=== PATIENT | male | born 1995 | race African-American/Black ===

== ENCOUNTER 2020-03-14 19:07 | Emergency (ER) | payer SELFPAY ==
[~2020-03-14] VITALS: Ht 180.3 cm; Wt 79.5 kg
[2020-03-14 20:09] LABS: HEMATOCRIT 43.3 % (42.0-52.0); HEMOGLOBIN 14.5 g/dl (13.5-17.5); MEAN CORPUSCULAR HEMOGLOBIN 28.8 pg (27.0-33.0); MEAN CORPUSCULAR HGB CONC 33.5 g/dl (32.0-36.5); MEAN CORPUSCULAR VOLUME 85.9 fl (80.0-96.0); PLATELET COUNT, AUTOMATED 261 10^3/uL (150-450); RED BLOOD COUNT 5.04 10^6/uL (4.30-6.10); WHITE BLOOD COUNT 7.1 10^3/uL (4.0-10.0)
[2020-03-14 20:30] LABS: AMPHETAMINES LEVEL URINE NEGATIVE (NEGATIVE); BARBITURATES URINE NEGATIVE (NEGATIVE); BENZODIAZEPINES URINE NEGATIVE (NEGATIVE); CANNABINOIDS URINE POSITIVE (NEGATIVE); COCAINE METABOLITE URINE NEGATIVE (NEGATIVE); METHADONE URINE NEGATIVE (NEGATIVE); OPIATES URINE NEGATIVE (NEGATIVE); PHENCYCLIDINE URINE NEGATIVE (NEGATIVE)
[2020-03-14 20:49] LABS: ACETAMINOPHEN LEVEL < 2.0 UG/ML (10.0-30.0); ALBUMIN 4.2 GM/DL (3.2-5.2); ALT/SGPT 14 U/L (12-78); BILIRUBIN,DIRECT 0.2 MG/DL (0.0-0.2); BILIRUBIN,TOTAL 0.6 MG/DL (0.2-1.0); BLOOD UREA NITROGEN 16 MG/DL (7-18); CALCIUM LEVEL 8.6 MG/DL (8.5-10.1); CARBON DIOXIDE LEVEL 28 MEQ/L (21-32); CHLORIDE LEVEL 107 MEQ/L (98-107); CREATININE FOR GFR 1.08 MG/DL (0.70-1.30); ETHYL ALCOHOL (ETHANOL) < 0.003 % (0.000-0.010); GLOMERULAR FILTRATION RATE > 60.0 (>60); GLUCOSE, FASTING 89 MG/DL (70-100); POTASSIUM SERUM 3.4 MEQ/L (3.5-5.1); SALICYLATE LEVEL < 1.7 MG/DL (5.0-30.0); SODIUM LEVEL 140 MEQ/L (136-145); TOTAL PROTEIN 7.6 GM/DL (6.4-8.2)
[2020-03-14 21:59] VITALS: BP 153/70
== END 2020-03-14 22:03 | disposition home or self-care (01) ==
LOC: M ED 19:07
DX: F43.0 Acute stress reaction (principal); F16.90 Hallucinogen use, unspecified, uncomplicated; F17.200 Nicotine dependence, unspecified, uncomplicated; Z63.0 Problems in relationship with spouse or partner; Z91.010 Allergy to peanuts
CPT/HCPCS: 36415; 80048; 80076; 80307; 84443; 85027; 99284; G0480

== ENCOUNTER 2020-03-15 22:58 | Inpatient (IN) | payer SELFPAY ==
[~2020-03-15] VITALS: Ht 172.7 cm; Wt 73.2 kg
[2020-03-15 23:55] LABS: AMPHETAMINES LEVEL URINE NEGATIVE (NEGATIVE); BARBITURATES URINE NEGATIVE (NEGATIVE); BENZODIAZEPINES URINE NEGATIVE (NEGATIVE); CANNABINOIDS URINE POSITIVE (NEGATIVE); COCAINE METABOLITE URINE NEGATIVE (NEGATIVE); METHADONE URINE NEGATIVE (NEGATIVE); OPIATES URINE NEGATIVE (NEGATIVE); PHENCYCLIDINE URINE NEGATIVE (NEGATIVE)
[2020-03-16 00:07] LABS: HEMATOCRIT 44.7 % (42.0-52.0); MEAN CORPUSCULAR HEMOGLOBIN 29.1 pg (27.0-33.0); MEAN CORPUSCULAR HGB CONC 33.6 g/dl (32.0-36.5); MEAN CORPUSCULAR VOLUME 86.6 fl (80.0-96.0); PLATELET COUNT, AUTOMATED 281 10^3/uL (150-450); RED BLOOD COUNT 5.16 10^6/uL (4.30-6.10)
[2020-03-16] MEDS ORDERED: OLANZapine 10 MG TAB PO ONE (00:30)
[2020-03-16 00:44] LABS: ACETAMINOPHEN LEVEL < 2.0 UG/ML (10.0-30.0); ALBUMIN 4.7 GM/DL (3.2-5.2); ALT/SGPT 15 U/L (12-78); BILIRUBIN,DIRECT 0.3 MG/DL (0.0-0.2); BILIRUBIN,TOTAL 0.9 MG/DL (0.2-1.0); BLOOD UREA NITROGEN 11 MG/DL (7-18); CALCIUM LEVEL 9.6 MG/DL (8.5-10.1); CARBON DIOXIDE LEVEL 27 MEQ/L (21-32); CHLORIDE LEVEL 105 MEQ/L (98-107); CREATININE FOR GFR 1.11 MG/DL (0.70-1.30); ETHYL ALCOHOL (ETHANOL) < 0.003 % (0.000-0.010); GLOMERULAR FILTRATION RATE > 60.0 (>60); GLUCOSE, FASTING 90 MG/DL (70-100); POTASSIUM SERUM 3.7 MEQ/L (3.5-5.1); SALICYLATE LEVEL < 1.7 MG/DL (5.0-30.0); SODIUM LEVEL 138 MEQ/L (136-145); TOTAL PROTEIN 8.4 GM/DL (6.4-8.2)
[2020-03-16] MEDS ORDERED: LORazepam 2 MG/ML VIAL IM ONE (01:15)
[2020-03-16] MEDS ORDERED: HALOPERIDOL 5MG/ML VIAL (J1630 PER 1) IM ONE (01:15)
[2020-03-16] MEDS ORDERED: diphenhydrAMINE 50MG/ML VIAL (J1200) IM ONE (01:15)
[2020-03-16] MEDS ORDERED: HALOPERIDOL 5MG/ML VIAL (J1630 PER 1) As Ordered ONE (01:16)
[2020-03-16] MEDS ORDERED: diphenhydrAMINE 50MG/ML VIAL (J1200) As Ordered ONE (01:16)
[2020-03-16] MEDS ORDERED: LORazepam 2 MG/ML VIAL As Ordered ONE (01:17)
[2020-03-16 14:17] LABS: RSV AMPLIFICATION NEGATIVE (NEGATIVE)
[2020-03-16] MEDS ORDERED: NICOTINE 21MG/24HR 1 EA TRANSDERMAL TD ONE (21:30)
--- NOTE | 2020-03-17 06:35 | ECGEPIP ---
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
[2020-03-17] MEDS ORDERED: NICOTINE 21MG/24HR 1 EA TRANSDERMAL TD ONE (09:15)
[2020-03-18] MEDS ORDERED: LORazepam 2 MG TAB PO STA (02:26)
[2020-03-18] MEDS ORDERED: NICOTINE 21MG/24HR 1 EA TRANSDERMAL TD ONE (10:00)
[2020-03-18 17:33] VITALS: BP 132/88
[2020-03-18] MEDS ORDERED: PALIPERIDONE 3 MG ER TAB (INVEGA) PO SCH (21:00)
[2020-03-18] MEDS ORDERED: NICOTINE POLACRILEX 2 MG GUM PO PRN (21:15)
[2020-03-18] MEDS: MOM 30ML SUSPENSION UDC PO PRN (23:31)
[2020-03-19] MEDS ORDERED: LORazepam 2 MG/ML VIAL IM STA ×2 (06:15→06:55)
[2020-03-19] MEDS ORDERED: HALOPERIDOL 5MG/ML VIAL (J1630 PER 1) IM STA ×2 (06:15→06:55)
[2020-03-19] MEDS ORDERED: diphenhydrAMINE 50MG/ML VIAL (J1200) IM STA ×2 (06:15→06:55)
[2020-03-19 06:45] VITALS: BP 136/77
[2020-03-19 06:51] VITALS: BP 143/88
[2020-03-19 07:15] VITALS: BP 148/71
[2020-03-19 07:30] VITALS: BP 119/67
[2020-03-19] MEDS: haloperidoL 5 MG TAB PO SCH ×3 (09:00→22:17)
[2020-03-19] MEDS: NICOTINE 21MG/24HR 1 EA TRANSDERMAL TD SCH (09:00)
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
[2020-03-19] MEDS: traZODone 50 MG TAB PO PRN (23:23)
[2020-03-20 05:53] VITALS: BP 135/66
[2020-03-20] MEDS: MOM 30ML SUSPENSION UDC PO PRN (06:25)
[2020-03-20] MEDS: NICOTINE 21MG/24HR 1 EA TRANSDERMAL TD SCH (09:00)
[2020-03-20] MEDS: haloperidoL 5 MG TAB PO SCH ×3 (09:18→20:11)
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
[2020-03-20 17:48] VITALS: BP 141/71
[2020-03-20] MEDS: traZODone 50 MG TAB PO PRN (21:47)
[2020-03-20] MEDS: OLANZapine 5 MG TAB PO PRN (22:35)
[2020-03-21] MEDS ORDERED: QUEtiapine FUMARATE 50MG TAB PO ONE
[2020-03-21 06:15] VITALS: BP 154/90
[2020-03-21] MEDS: MOM 30ML SUSPENSION UDC PO PRN (06:33)
[2020-03-21] MEDS: haloperidoL 5 MG TAB PO SCH ×3 (08:36→20:28)
[2020-03-21] MEDS: ACETAMINOPHEN TAB 650MG DOSE (2X325MG) PO PRN ×2 (08:36→21:21)
[2020-03-21] MEDS: NICOTINE 21MG/24HR 1 EA TRANSDERMAL TD SCH (08:37)
[2020-03-21 16:23] VITALS: BP 124/69
[2020-03-21] MEDS: QUEtiapine FUMARATE 50MG TAB PO SCH (20:28)
[2020-03-21] MEDS: traZODone 50 MG TAB PO PRN (21:20)
[2020-03-21] MEDS: OLANZapine 5 MG TAB PO PRN (22:02)
[2020-03-22] MEDS: OLANZapine 5 MG TAB PO PRN ×2 (04:02→22:43)
[2020-03-22] MEDS: ACETAMINOPHEN TAB 650MG DOSE (2X325MG) PO PRN (04:42)
[2020-03-22 06:22] VITALS: BP 139/84
[2020-03-22] MEDS: haloperidoL 5 MG TAB PO SCH ×3 (08:04→20:18)
[2020-03-22] MEDS: NICOTINE 21MG/24HR 1 EA TRANSDERMAL TD SCH (09:00)
[2020-03-22] MEDS: MOM 30ML SUSPENSION UDC PO PRN (11:30)
[2020-03-22 15:58] VITALS: BP 151/83
--- NOTE | 2020-03-22 16:28 | MHIPN ---
[facility] PROGRESS NOTE DATE: 03/20/2020 The patient had both mechanical and chemical restraint. He became very agitated, trying to leave the unit. Staff had used alternatives to restraints without any success. He was given Haldol 10 mg, Ativan 2 mg, Benadryl 50 mg. Today the patient tells me that he is doing good. INCOMPLETE/canceled by dictator/ml
[2020-03-22] MEDS: QUEtiapine FUMARATE 50MG TAB PO SCH (20:18)
[2020-03-22] MEDS: traZODone 50 MG TAB PO PRN (22:43)
[2020-03-23 06:34] VITALS: BP 132/79
[2020-03-23] MEDS: NICOTINE 21MG/24HR 1 EA TRANSDERMAL TD SCH (08:00)
[2020-03-23] MEDS: haloperidoL 5 MG TAB PO SCH ×3 (08:01→20:11)
[2020-03-23] MEDS: MOM 30ML SUSPENSION UDC PO PRN (09:22)
--- NOTE | 2020-03-23 09:52 | MHIPN ---
[facility] PROGRESS NOTE DATE: 03/21/2020 The patient today states "I feel great." He remains very delusional, talking about the Holy Spirit, he had difficulty sleeping last night and after he had had some Zyprexa, and I believe some trazodone, they had called me because he could not sleep and I prescribed Seroquel 50 mg nightly. He says that that helped him to sleep better. MENTAL STATUS EXAMINATION: He is alert and oriented times three. Eye contact is fairly good. Psychomotor activity is normal. There is no formal thought disorder. He told me his mood is "great." His affect is manic. He is denying being suicidal or homicidal. He has paranoid delusions as noted above. Concentration is fair. Memory intact. Insight and judgment is poor. DIAGNOSES: Unspecified psychotic disorder. Rule out substance induced psychotic disorder and hallucinogen use disorder. TREATMENT PLAN: We will continue to monitor the patient for psychotic symptoms and what appears to be possibly hypomanic manic-like symptoms that may or may not be substance induced. I will add Seroquel 50 mg nightly to his medication regimen because it sounds like this really helped him sleep better and the patient is in agreement with that.
[2020-03-23] MEDS ORDERED: LORazepam 2 MG TAB PO ONE (11:15)
[2020-03-23] MEDS ORDERED: diphenhydrAMINE 50MG CAP PO ONE (11:15)
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
[2020-03-23 17:44] VITALS: BP 136/84
[2020-03-23] MEDS: QUEtiapine FUMARATE 50MG TAB PO SCH (20:11)
[2020-03-23] MEDS: MAALOX 30 ML SUSP *UDC PO PRN (21:48)
[2020-03-24] MEDS: OLANZapine 5 MG TAB PO PRN ×3 (01:38→16:37)
[2020-03-24] MEDS: MAALOX 30 ML SUSP *UDC PO PRN ×2 (05:21→20:23)
[2020-03-24 06:24] VITALS: BP 137/71
[2020-03-24] MEDS: NICOTINE 21MG/24HR 1 EA TRANSDERMAL TD SCH (09:00)
[2020-03-24] MEDS: haloperidoL 5 MG TAB PO SCH ×3 (09:03→20:00)
--- NOTE | 2020-03-24 13:06 | MHIPNPDOC ---
[facility] Progress Note Progress Note DATE OF SERVICE: 03/24/20 HISTORY OF THE PRESENT ILLNESS: Patient is a 25 -year-old , male, who per the ED reports came to the emergency room on 03/14/20 for a "situational disturbance" where patient reported he was angry at his mother because she was "infringing on my parental rights" and wouldn't let him see his kids. At that visit he denied si/hi/ah/vh but did admit to smoking mushrooms. because "has more things to talk about." At this presentation, Shahzad was observed in the ED to be religiously preoccupied, having two sided conversations, acting out communication roles in different voices, rambling/nonsensical speech, and singing. He was [facility] on a 9.39 [facility] Per the sister, Shirley, she reports patient took mushrooms and that he was "talking to his grandmother, talking to himself, and talking to God.- saying some wild things." She reports he had used mushrooms twice, one JATIN and one New Year's day. sister thinks he is on a "bad trip. She reports that after he "cleared up from his trip, he was acting normal, was with a friend but after he left his friend's house he became bizarre again, hearing voices, and that he is "God's second hand." She encouraged him to come the the ED and he agreed. She states that he is upset with his mother and "his baby mama." He has been t elling sister that the mother is the devil and will be "burning on earth." She states they haven't been getting along and that he has not been able to see his children in a long time, contributing to his drug use VITAL SIGNS: See below. NEW TEST RESULTS: CURRENT MEDICATIONS: See below. MENTAL STATUS EXAMINATION: Patient is a 25-year old single, domiciled male, who presents with disheveled hair, dressed in personal clothing. He is alert and oriented, agreeable to meet with this rewriter but requests that his assigned nurse be present for the interview because he wants her to "vouch" for him that he is doing well, smiles inappropriately at times during the interview. He had colored his mask, one of the images being a cross, and has has it around his neck for the interview process Speech: Is normal rate, rhythm, and tone, spontaneous Language skills are appropriate for age Thought processes including: circumstantial and tangential Thought content: bizarre, denies si/hi, Abstract reasoning, and computation: fair Description of associations: expresses tenriism delusions to the family Description of abnormal or psychotic thoughts: tenriism delusions (per family report), does not appear to be internally preoccupied Judgment: poor Insight:poor Orientation: A&O x3 Recent and remote memory: intact Attention span and concentration: average Language: average Fund of knowledge: average Mood: euthymic Affect: bizarre, animated, DIAGNOSES: unspecified psychotic disorder Rule out substance induced psychotic disorder hallucinogen use disorder VITAL SIGNS: See below. CURRENT MEDICATIONS: See below. HISTORY: VITAL SIGNS: See below. CURRENT MEDICATIONS: See below. ASSESSMENT: Shahzad presents with his nurse, asking her to tell this rewriter that he is doing well. He states that he would like to be discharged today to go home, as he reports he needs to go to work to make money and support his children who live in different states, states "I don't have a problem with staying if that's what I need to do but you are stopping me from being able to take care of my children." He reports that he has revoked his DARION for his sister, who the treatment team has been speaking with to get collateral and to assess for improvement and discuss progress in treatment with. His behaviors of hitting the lake and yelling were discussed and he reports that he has not had any further behaviors since. When asked about what brought him into the coworkers, he gives a disorganized story, starts off talking about how he went to the police station for his court date, then went to the courthouse because the police told him that's where court is held, then talked about his coworkers and his work day on - stating one was on her phone during work and he "called her out on it" and another two are "interloping but it's not illegal at the [facility]." He said that another coworker told him she would cover for him if he left and he went to his sister's house and that the sister's practice's with craft and was reading tarot cards And that one of the tarot cards told him he would be receiving help, states "it could be you, the one helping me like the tarot cards were referring to." He still appears to be confused, does not mention his drug use in his reason for admission. At this interview, he maintains poor insight and judgment, is unable to make the connection of the mushroom use and the effect on his thought process. continue all medications TIME SPENT: 25 minutes. Vital Signs Vital Signs Date Time Temp Pulse Resp B/P (MAP) Pulse Ox O2 Delivery O2 Flow Rate FiO2 03/24/20 06:24 97.3 91 20 137/71 (93) 98 Room Air Current Medications Current Medications Medications (Trade) Dose Ordered Sig/Jennifer Route PRN Reason Start Time Stop Time Status Last Admin Dose Admin Acetaminophen (Tylenol Tab) 650 mg Q6HP PRN PO HEADACHE or DISCOMFORT 03/18/20 16:30 03/22/20 04:42 Al Hydrox/Mg Hydrox/Simethicone (Mylanta) 30 ml Q4HP PRN PO HEARTBURN/INDIGESTION 03/18/20 16:30 03/24/20 05:21 Diphenhydramine HCl (Benadryl) 50 mg STAT STAT IM 03/19/20 06:15 03/19/20 06:19 DC 03/19/20 06:47 Diphenhydramine HCl (Benadryl) 50 mg STAT STAT IM 03/19/20 06:55 03/19/20 06:58 DC 03/19/20 07:08 Haloperidol (Haldol) 5 mg TID PO 03/19/20 09:00 03/24/20 09:03 Haloperidol (Haldol) 10 mg STAT STAT IM 03/19/20 06:15 03/19/20 06:19 DC 03/19/20 06:48 Haloperidol (Haldol) 10 mg STAT STAT IM 03/19/20 06:55 03/19/20 06:58 DC 03/19/20 07:08 Home Med (Med Rec Complete!) ASDIRECTED XX 03/16/20 00:45 03/16/20 00:42 DC Lorazepam (Ativan) 2 mg STAT STAT IM 03/19/20 06:15 03/19/20 06:19 DC 03/19/20 06:47 Lorazepam (Ativan) 2 mg STAT STAT IM 03/19/20 06:55 03/19/20 06:58 DC 03/19/20 07:08 Lorazepam (Ativan) 2 mg STAT STAT PO 03/18/20 02:26 03/18/20 02:27 DC 03/18/20 02:40 Magnesium Hydroxide (Milk Of Magnesia) 30 ml DAILYPRN PRN PO CONSTIPATION 03/18/20 16:30 03/23/20 09:22 Nicotine (Nicoderm Cq 21mg) 1 patch DAILY TD 03/19/20 09:00 Nicotine (Nicorette) 4 mg Q4HP PRN PO NICOTINE WITHDRAWAL 03/18/20 21:15 Olanzapine (ZyPREXA) 5 mg Q6HP PRN PO AGITATION 03/18/20 16:30 03/24/20 09:03 Paliperidone (Invega) 3 mg BID PO 03/18/20 21:00 03/19/20 08:54 DC 03/18/20 21:06 Quetiapine Fumarate (SEROquel) 50 mg QHS PO 03/21/20 21:00 03/23/20 20:11 Trazodone HCl (Desyrel) 50 mg QHSP PRN PO INSOMNIA 03/18/20 16:30 03/22/20 22:43 Allergies Coded Allergies: NUTS (Verified Allergy, Unknown, 03/14/20) MELA CARDONA NP Mar 24, 2020 12:54
[2020-03-24 17:00] VITALS: BP 116/78
[2020-03-24] MEDS: QUEtiapine FUMARATE 50MG TAB PO SCH (20:00)
[2020-03-24] MEDS: traZODone 50 MG TAB PO PRN (20:00)
[2020-03-24] MEDS ORDERED: OLANZapine ORAL DISINTEGRATING TAB 5MG PO ONE (21:45)
[2020-03-25] MEDS: OLANZapine 5 MG TAB PO PRN ×2 (02:23→09:55)
[2020-03-25 06:23] VITALS: BP 133/67
[2020-03-25] MEDS: haloperidoL 5 MG TAB PO SCH (08:00)
[2020-03-25] MEDS: NICOTINE 21MG/24HR 1 EA TRANSDERMAL TD SCH (08:01)
[2020-03-25] MEDS ORDERED: LORazepam 2 MG TAB PO STA (11:16)
--- NOTE | 2020-03-25 12:02 | MHIPN ---
[facility] PSYCHIATRIC PROGRESS NOTE DATE: 03/22/20 HISTORY OF PRESENT ILLNESS: The patient today states that he is doing good. He has no complaints. I am not eliciting any mood symptoms. MENTAL STATUS EXAM: Patient is alert and oriented times 3. Eye contact is fairly good. Psychomotor activity is normal. There is no formal thought disorder noted. He states his mood is good. Appears to be at least hypomanic. He is denying suicidal or homicidal ideations. He remains very delusional. Concentration is fair. Memory intact. Insight and judgment is poor. DIAGNOSES: 1. Unspecified psychotic disorder. 2. Rule out substance induced psychotic disorder and hallucinogen disorder. TREATMENT PLAN: We will continue to monitor the patient for continued problems with paranoid thinking. We will adjust his medication as indicated.
--- NOTE | 2020-03-25 12:16 | MHIPNPDOC ---
[facility] Progress Note Progress Note DATE OF SERVICE: 03/25/20 HISTORY OF THE PRESENT ILLNESS: Patient is a 25 -year-old , male, who per the ED reports came to the emergency room on 03/14/20 for a "situational disturbance" where patient reported he was angry at his mother because she was "infringing on my parental rights" and wouldn't let him see his kids. At that visit he denied si/hi/ah/vh but did admit to smoking mushrooms. because "has more things to talk about." At this presentation, Shahzad was observed in the ED to be religiously preoccupied, having two sided conversations, acting out communication roles in different voices, rambling/nonsensical speech, and singing. He was admitted on a 9.39 to [facility]. Per the sister, Shirley, she reports patient took mushrooms and that he was "talking to his grandmother, talking to himself, and talking to God.- saying some wild things." She reports he had used mushrooms twice, one JATIN and one New Year's day. sister thinks he is on a "bad trip. She reports that after he "cleared up from his trip, he was acting normal, was with a friend but after he left his friend's house he became bizarre again, hearing voices, and that he is "God's second hand." She encouraged him to come the the ED and he agreed. She states that he is upset with his mother and "his baby mama." He has been t elling sister that the mother is the devil and will be "burning on earth." She states they haven't been getting along and that he has not been able to see his children in a long time, contributing to his drug use VITAL SIGNS: See below. NEW TEST RESULTS: CURRENT MEDICATIONS: See below. MENTAL STATUS EXAMINATION: Patient is a 25-year old single, domiciled male, who presents with disheveled hair, dressed in layered personal clothing, wearing a colored his mask, one of the images being a cross, carrying bible. This morning He is alert and oriented, anxious, irritable, pacing floors wanting to speak with staff. He is intrusive with peers and staff, stopped this remote mortgage underwriter in the hallway repeating that he wants to be discharge states, "I need to be seen right now, to discuss my discharge, not my staying, my discharge." He is observed to be acting bizarre in the mileu, dancing and running hands down the lake, singing and changing about God in his room. Throughout the interview, he is irritable, visibly anxious, bouncing and unable to sit still, confrontational and challenging, smiling inappropriately at times. He is religiously preoccupied Thought processes including: circumstantial and tangential Thought content: bizarre, denies si/hi, Abstract reasoning, and computation: fair Description of associations: holiness delusions, hyperfocused Description of abnormal or psychotic thoughts: holiness delusions, does not appear to be internally preoccupied Judgment: poor Insight:poor Orientation: A&O x3 Recent and remote memory: intact Attention span and concentration: average Language: average Fund of knowledge: average Mood: euthymic, irritable Affect: bizarre, animated, intense DIAGNOSES: unspecified psychotic disorder Rule out substance induced psychotic disorder hallucinogen use disorder VITAL SIGNS: See below. CURRENT MEDICATIONS: See below. HISTORY: ASSESSMENT: Shahzad presents in the interview room with train planner, after reports from staff that he was agitated, requesting discharge and had recently received prn zyprexa zydis. At this interview, he is hyper focused on restoration, states "I can't proclaim my shruthi to you, I need to proclaim my shruthi to a nun and I need communion." He states that he needs to be discharged because he doesn't feel like he is getting access to speak to a zoo veterinarian on the unit. It was discussed that he can request a zoo veterinarian but that there are specific guidelines and at this time that the hospital must follow due to the Covid 19 pandemic and that we are unsure about the hospital's policy and clergy visits. He became upset, accused this remote mortgage underwriter of not allowing him access to a zoo veterinarian and was very difficult to redirect. He began to read a bible verse and stated that he wants to discuss his dreams and visions he has been having with a zoo veterinarian. Shahzad then states he needs to return home to go back to work and support his children. He was told he wouldn't be discharged today and to which he replied, he was going to go to court. He states "I want to go to court, I don't want to but I will if I have to." He remains disorganized in his thought process, states that at court he wants to tell them that the hospital is not allowing him to "proclaim my shruthi correctly." management plan: increase haldol to 10 mg po bid TIME SPENT: 25 minutes. Vital Signs Vital Signs Date Time Temp Pulse Resp B/P (MAP) Pulse Ox O2 Delivery O2 Flow Rate FiO2 03/25/20 08:07 Room Air 03/25/20 06:23 97.2 89 18 133/67 (89) 96 Current Medications Current Medications Medications (Trade) Dose Ordered Sig/Jennifer Route PRN Reason Start Time Stop Time Status Last Admin Dose Admin Acetaminophen (Tylenol Tab) 650 mg Q6HP PRN PO HEADACHE or DISCOMFORT 03/18/20 16:30 03/22/20 04:42 Al Hydrox/Mg Hydrox/Simethicone (Mylanta) 30 ml Q4HP PRN PO HEARTBURN/INDIGESTION 03/18/20 16:30 03/24/20 20:23 Diphenhydramine HCl (Benadryl) 50 mg STAT STAT IM 03/19/20 06:15 03/19/20 06:19 DC 03/19/20 06:47 Diphenhydramine HCl (Benadryl) 50 mg STAT STAT IM 03/19/20 06:55 03/19/20 06:58 DC 03/19/20 07:08 Haloperidol (Haldol) 5 mg TID PO 03/19/20 09:00 03/25/20 11:16 DC 03/25/20 08:00 Haloperidol (Haldol) 10 mg BID PO 03/25/20 21:00 Haloperidol (Haldol) 10 mg STAT STAT IM 03/19/20 06:15 03/19/20 06:19 DC 03/19/20 06:48 Haloperidol (Haldol) 10 mg STAT STAT IM 03/19/20 06:55 03/19/20 06:58 DC 03/19/20 07:08 Home Med (Med Rec Complete!) ASDIRECTED XX 03/16/20 00:45 03/16/20 00:42 DC Lorazepam (Ativan) 2 mg STAT STAT IM 03/19/20 06:15 03/19/20 06:19 DC 03/19/20 06:47 Lorazepam (Ativan) 2 mg STAT STAT IM 03/19/20 06:55 03/19/20 06:58 DC 03/19/20 07:08 Lorazepam (Ativan) 2 mg STAT STAT PO 03/25/20 11:16 03/25/20 11:17 DC Lorazepam (Ativan) 2 mg STAT STAT PO 03/18/20 02:26 03/18/20 02:27 DC 03/18/20 02:40 Magnesium Hydroxide (Milk Of Magnesia) 30 ml DAILYPRN PRN PO CONSTIPATION 03/18/20 16:30 03/23/20 09:22 Nicotine (Nicoderm Cq 21mg) 1 patch DAILY TD 03/19/20 09:00 03/25/20 08:01 Nicotine (Nicorette) 4 mg Q4HP PRN PO NICOTINE WITHDRAWAL 03/18/20 21:15 Olanzapine (ZyPREXA) 5 mg Q6HP PRN PO AGITATION 03/18/20 16:30 03/25/20 09:55 Paliperidone (Invega) 3 mg BID PO 03/18/20 21:00 03/19/20 08:54 DC 03/18/20 21:06 Quetiapine Fumarate (SEROquel) 50 mg QHS PO 03/21/20 21:00 03/24/20 20:00 Trazodone HCl (Desyrel) 50 mg QHSP PRN PO INSOMNIA 03/18/20 16:30 03/24/20 20:00 Allergies Coded Allergies: NUTS (Verified Allergy, Unknown, 03/14/20) MELA CARDONA NP Mar 25, 2020 12:16
[2020-03-25 17:49] VITALS: BP 107/66
[2020-03-25 17:51] VITALS: BP 113/58
[2020-03-25] MEDS: traZODone 50 MG TAB PO PRN (20:41)
[2020-03-25] MEDS: QUEtiapine FUMARATE 100 MG TAB PO SCH (20:41)
[2020-03-26] MEDS: ACETAMINOPHEN TAB 650MG DOSE (2X325MG) PO PRN (02:48)
[2020-03-26] MEDS: haloperidoL 5 MG TAB PO PRN (03:06)
[2020-03-26] MEDS: LORazepam 2 MG TAB PO PRN ×2 (03:06→22:08)
[2020-03-26 06:00] VITALS: BP 137/87
[2020-03-26] MEDS: NICOTINE 21MG/24HR 1 EA TRANSDERMAL TD SCH (09:11)
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
[2020-03-26 18:00] VITALS: BP 140/90
[2020-03-26] MEDS: QUEtiapine FUMARATE 100 MG TAB PO SCH (20:10)
[2020-03-26] MEDS: traZODone 50 MG TAB PO PRN ×2 (20:10→21:58)
[2020-03-27] MEDS: haloperidoL 5 MG TAB PO PRN (04:48)
[2020-03-27] MEDS: ACETAMINOPHEN TAB 650MG DOSE (2X325MG) PO PRN ×2 (05:28→21:23)
[2020-03-27] MEDS: MOM 30ML SUSPENSION UDC PO PRN (05:28)
[2020-03-27 06:12] VITALS: BP 126/70
[2020-03-27] MEDS: DOCUSATE SODIUM 100MG CAPSULE PO PRN (09:53)
[2020-03-27] MEDS: NICOTINE 21MG/24HR 1 EA TRANSDERMAL TD SCH (09:53)
--- NOTE | 2020-03-27 11:53 | MHIPNPDOC ---
[facility] Progress Note Progress Note DATE OF SERVICE: 03/27/20 HISTORY OF THE PRESENT ILLNESS: Patient is a 25 -year-old , male, who per the ED reports came to the emergency room on 03/14/20 for a "situational disturbance" where patient reported he was angry at his mother because she was "infringing on my parental rights" and wouldn't let him see his kids. At that visit he denied si/hi/ah/vh but did admit to smoking mushrooms because "has more things to talk about." At this presentation, Shahzad was observed in the ED to be religiously preoccupied, having two sided conversations, acting out communication roles in different voices, rambling/nonsensical speech, and singing. He was admitted on a 9.39 to [facility]. Per the sister, Shirley, she reports patient took mushrooms and that he was "talking to his grandmother, talking to himself, and talking to God.- saying some wild things." She reports he had used mushrooms twice, one JATIN and one New Year's day. sister thinks he is on a "bad trip. She reports that after he "cleared up from his trip, he was acting normal, was with a friend but after he left his friend's house he became bizarre again, hearing voices, and that he is "God's second hand." She encouraged him to come the the ED and he agreed. She states that he is upset with his mother and "his baby mama." He has been telling sister that the mother is the devil and will be "burning on earth." She states they haven't been getting along and that he has not been able to see his children in a long time, contributing to his drug use CURRENT MEDICATIONS: See below. MENTAL STATUS EXAMINATION: Patient is a 25-year old single, domiciled male, who presents with disheveled hair, wearing a mask. His dress is appropriate, hygiene and grooming is fair. Eye contact is good. Is not observed with psychomotor agitation or retardation Speech: Is fluid, conversant, normal rate, tone and volume Language skills are intact Thought processes including: linear and goal oriented Thought content: reporting decreased depression and decreased anxiety. Denies suicidal/homicidal ideation, planning or intent. Abstract reasoning, and computation: fair Description of associations: adventist delusions Description of abnormal or psychotic thoughts: adventist delusions, does not a ppear to be internally preoccupied Judgment: poor but is somewhat improved Insight:poor but is somewhat improved Orientation: A&O x3 Recent and remote memory: intact Attention span and concentration: average Language: average Fund of knowledge: average Mood: euthymic, Affect: flat Assessment: In today's session patient is apologetic and states, "I am sorry about my actions yesterday. I am reacting because of past trauma." When he was asked about drug use, he states "I don't know anything about drug use. 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 I had seen a vision and now the Holy Ghost is in my body" Patient has rescinded his request for retention and states that he will wait for discharge by this provider. He denies depression and anxiety and although he continues to have adventist preoccupation, it is less intense. He appears to be pleasantly religiously preoccupied whereas yesterday patient was agitated with adventist speech. DIAGNOSES: unspecified psychotic disorder Rule out substance induced psychotic disorder hallucinogen use disorder TIME SPENT: 25 minutes Vital Signs Vital Signs Date Time Temp Pulse Resp B/P (MAP) Pulse Ox O2 Delivery O2 Flow Rate FiO2 03/27/20 06:12 98.3 86 16 126/70 (88) 97 03/26/20 09:14 Room Air Current Medications Current Medications Medications (Trade) Dose Ordered Sig/Jennifer Route PRN Reason Start Time Stop Time Status Last Admin Dose Admin Acetaminophen (Tylenol Tab) 650 mg Q6HP PRN PO HEADACHE or DISCOMFORT 03/18/20 16:30 03/27/20 05:28 Al Hydrox/Mg Hydrox/Simethicone (Mylanta) 30 ml Q4HP PRN PO HEARTBURN/INDIGESTION 03/18/20 16:30 03/24/20 20:23 Diphenhydramine HCl (Benadryl) 50 mg STAT STAT IM 03/19/20 06:15 03/19/20 06:19 DC 03/19/20 06:47 Diphenhydramine HCl (Benadryl) 50 mg STAT STAT IM 03/19/20 06:55 03/19/20 06:58 DC 03/19/20 07:08 Docusate Sodium (Colace) 100 mg DAILYPRN PRN PO CONSTIPATION 03/27/20 08:30 03/27/20 09:53 Haloperidol (Haldol) 5 mg Q6HP PRN PO AGITATION 03/25/20 13:45 03/27/20 04:48 Haloperidol (Haldol) 5 mg TID PO 03/19/20 09:00 03/25/20 11:16 DC 03/25/20 08:00 Haloperidol (Haldol) 10 mg BID PO 03/25/20 21:00 03/27/20 09:53 Haloperidol (Haldol) 10 mg STAT STAT IM 03/19/20 06:15 03/19/20 06:19 DC 03/19/20 06:48 Haloperidol (Haldol) 10 mg STAT STAT IM 03/19/20 06:55 03/19/20 06:58 DC 03/19/20 07:08 Home Med (Med Rec Complete!) ASDIRECTED XX 03/16/20 00:45 03/16/20 00:42 DC Lorazepam (Ativan) 2 mg Q8HP PRN PO AGITATION 03/25/20 13:45 03/26/20 22:08 Lorazepam (Ativan) 2 mg STAT STAT IM 03/19/20 06:15 03/19/20 06:19 DC 03/19/20 06:47 Lorazepam (Ativan) 2 mg STAT STAT IM 03/19/20 06:55 03/19/20 06:58 DC 03/19/20 07:08 Lorazepam (Ativan) 2 mg STAT STAT PO 03/25/20 11:16 03/25/20 11:17 DC 03/25/20 12:59 Lorazepam (Ativan) 2 mg STAT STAT PO 03/18/20 02:26 03/18/20 02:27 DC 03/18/20 02:40 Magnesium Hydroxide (Milk Of Magnesia) 30 ml DAILYPRN PRN PO CONSTIPATION 03/18/20 16:30 03/27/20 05:28 Nicotine (Nicoderm Cq 21mg) 1 patch DAILY TD 03/19/20 09:00 03/27/20 09:53 Nicotine (Nicorette) 4 mg Q4HP PRN PO NICOTINE WITHDRAWAL 03/18/20 21:15 Olanzapine (ZyPREXA) 5 mg Q6HP PRN PO AGITATION 03/18/20 16:30 03/25/20 13:42 DC 03/25/20 09:55 Paliperidone (Invega) 3 mg BID PO 03/18/20 21:00 03/19/20 08:54 DC 03/18/20 21:06 Quetiapine Fumarate (SEROquel) 50 mg QHS PO 03/21/20 21:00 03/25/20 13:42 DC 03/24/20 20:00 Quetiapine Fumarate (SEROquel) 100 mg QHS PO 03/25/20 21:00 03/26/20 20:10 Trazodone HCl (Desyrel) 50 mg QHSP PRN PO INSOMNIA 03/18/20 16:30 03/26/20 21:58 Allergies Coded Allergies: NUTS (Verified Allergy, Unknown, 03/14/20) MELA CARDONA NP Mar 27, 2020 11:44
[2020-03-27] MEDS: LORazepam 2 MG TAB PO PRN (16:05)
[2020-03-27 17:31] VITALS: BP 118/62
[2020-03-27] MEDS: QUEtiapine FUMARATE 100 MG TAB PO SCH (21:22)
[2020-03-27] MEDS: traZODone 50 MG TAB PO PRN (21:22)
[2020-03-28 06:55] VITALS: BP 122/62
[2020-03-28] MEDS: NICOTINE 21MG/24HR 1 EA TRANSDERMAL TD SCH (08:10)
[2020-03-28] MEDS: DOCUSATE SODIUM 100MG CAPSULE PO PRN (09:03)
[2020-03-28] MEDS: ACETAMINOPHEN TAB 650MG DOSE (2X325MG) PO PRN ×2 (09:57→16:10)
[2020-03-28] MEDS: LORazepam 2 MG TAB PO PRN (12:58)
[2020-03-28] MEDS ORDERED: PREPARATION H OINTMENT (HEMORRHOID) PR PRN (17:30)
[2020-03-28 17:43] VITALS: BP 120/74
[2020-03-28] MEDS: traZODone 50 MG TAB PO PRN (20:04)
[2020-03-28] MEDS: QUEtiapine FUMARATE 100 MG TAB PO SCH (20:04)
[2020-03-29 06:35] VITALS: BP 128/73
[2020-03-29] MEDS: haloperidoL 5 MG TAB PO PRN (06:50)
[2020-03-29] MEDS: NICOTINE 21MG/24HR 1 EA TRANSDERMAL TD SCH (08:25)
[2020-03-29] MEDS: DOCUSATE SODIUM 100MG CAPSULE PO PRN (10:38)
[2020-03-29] MEDS: MOM 30ML SUSPENSION UDC PO PRN (14:07)
[2020-03-29] MEDS: QUEtiapine FUMARATE 100 MG TAB PO SCH (22:17)
[2020-03-30 06:51] VITALS: BP 145/95
[2020-03-30] MEDS: NICOTINE 21MG/24HR 1 EA TRANSDERMAL TD SCH (07:57)
[2020-03-30] MEDS: BENZTROPINE 0.5 MG TAB PO SCH ×2 (10:12→21:31)
[2020-03-30] MEDS: haloperidoL 5 MG TAB PO PRN (11:45)
[2020-03-30] MEDS: LORazepam 2 MG TAB PO PRN ×2 (11:45→21:31)
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
[2020-03-30 17:14] VITALS: BP 115/60
[2020-03-30] MEDS: traZODone 50 MG TAB PO PRN (21:30)
[2020-03-30] MEDS: QUEtiapine FUMARATE 100 MG TAB PO SCH (21:31)
[2020-03-31 06:23] VITALS: BP 143/64
[2020-03-31] MEDS: NICOTINE 21MG/24HR 1 EA TRANSDERMAL TD SCH (08:27)
[2020-03-31] MEDS: BENZTROPINE 0.5 MG TAB PO SCH ×2 (08:27→20:05)
[2020-03-31] MEDS ORDERED: BENZTROPINE 1 MG TAB PO ONE (09:00)
[2020-03-31] MEDS ORDERED: HALO5TA PO (09:56)
[2020-03-31] MEDS ORDERED: DOK1CAP7 PO (09:56)
[2020-03-31] MEDS ORDERED: BENZ0.5T23 PO (09:56)
[2020-03-31] MEDS ORDERED: HALO10TA20 PO (09:56)
--- NOTE | 2020-03-31 11:11 | MHIPNPDOC ---
[facility] Progress Note Progress Note DATE OF SERVICE: 03/31/20 HISTORY OF THE PRESENT ILLNESS: Patient is a 25 -year-old , male, who per the ED reports came to the emergency room on 03/14/20 for a "situational disturbance" where patient reported he was angry at his mother because she was "infringing on my parental rights" and wouldn't let him see his kids. At that visit he denied si/hi/ah/vh but did admit to smoking mushrooms because "has more things to talk about." At this presentation, Shahzad was observed in the ED to be religiously preoccupied, having two sided conversations, acting out communication roles in different voices, rambling/nonsensical speech, and singing. He was admitted on a 9.39 to [facility]. Per the sister, Shirley, she reports patient took mushrooms and that he was "talking to his grandmother, talking to himself, and talking to God.- saying some wild things." She reports he had used mushrooms twice, one JATIN and one New Year's day. sister thinks he is on a "bad trip. She reports that after he "cleared up from his trip, he was acting normal, was with a friend but after he left his friend's house he became bizarre again, hearing voices, and that he is "God's second hand." She encouraged him to come the the ED and he agreed. She states that he is upset with his mother and "his baby mama." He has been telling sister that the mother is the devil and will be "burning on earth." She states they haven't been getting along and that he has not been able to see his children in a long time, contributing to his drug use CURRENT MEDICATIONS: See below. MENTAL STATUS EXAMINATION: Patient is a 25-year old single, domiciled male, who presents with disheveled hair, wearing a mask. His dress is appropriate, hygiene and grooming is fair, wearing silver nailpolish. Eye contact is good. Is not observed with psychomotor agitation or retardation Speech: Is fluid, conversant, normal rate, tone and volume Language skills are intact Thought processes including: linear and goal oriented Thought content: reporting decreased depression and decreased anxiety. Denies ryan icidal/homicidal ideation, planning or intent. Abstract reasoning, and computation: fair Description of associations: restorationism delusions Description of abnormal or psychotic thoughts: restorationism preoccupation, moderately reduced Judgment: fair Insight:fair Orientation: A&O x3 Recent and remote memory: intact Attention span and concentration: average Language: average Fund of knowledge: average Mood: euthymic, Affect: flat Assessment: Agreeable to interview, Shahzad is observed to be improving. He does not have an any delusional or bizarre statements today. States that he is awaiting his discharge tomorrow or and feels confident that he is better. Patient has significantly less restorationism preoccupation, his conversations are not littered with restorationism speech. He has no delusional thoughts voiced in the interview. He is less disorganized and scattered in his thought process. He is reality based and denies depression, anxiety and suicidal ideation. He is not o bserved with magda, paranoia, delusions, obsessions, ruminations or AH/VH/TH. He is observed with fair insight and judgment at this time and at this time, he meets criteria for discharge. Staff reports patient may have some EPS, as he was noted to have some robotic like movements, stiffness, and shuffling gait. He reports having restless legs. Cogentin ordered and patient encouraged to take it for side effects. Patient will be discharged tomorrow DIAGNOSES: unspecified psychotic disorder Rule out substance induced psychotic disorder hallucinogen use disorder management plan: Haldol 10 mg in AM decreased to 5 mg in AM ordered Cogentin 1mg now ordered cogentin 0.5 mg at bedtime not to be given Discharge tomorrow TIME SPENT: 25 minutes Vital Signs Vital Signs Date Time Temp Pulse Resp B/P (MAP) Pulse Ox O2 Delivery O2 Flow Rate FiO2 03/31/20 07:54 Room Air 03/31/20 06:23 98.0 100 16 143/64 (90) 99 Current Medications Current Medications Medications (Trade) Dose Ordered Sig/Jennifer Route PRN Reason Start Time Stop Time Status Last Admin Dose Admin Acetaminophen (Tylenol Tab) 650 mg Q6HP PRN PO HEADACHE or DISCOMFORT 03/18/20 16:30 03/28/20 16:10 Al Hydrox/Mg Hydrox/Simethicone (Mylanta) 30 ml Q4HP PRN PO HEARTBURN/INDIGESTION 03/18/20 16:30 03/24/20 20:23 Benztropine Mesylate (Cogentin) 0.5 mg BID PO 03/30/20 09:00 03/31/20 08:27 Diphenhydramine HCl (Benadryl) 50 mg STAT STAT IM 03/19/20 06:15 03/19/20 06:19 DC 03/19/20 06:47 Diphenhydramine HCl (Benadryl) 50 mg STAT STAT IM 03/19/20 06:55 03/19/20 06:58 DC 03/19/20 07:08 Docusate Sodium (Colace) 100 mg DAILYPRN PRN PO CONSTIPATION 03/27/20 08:30 03/29/20 10:38 Haloperidol (Haldol) 5 mg DAILY PO 04/01/20 09:00 Haloperidol (Haldol) 5 mg Q6HP PRN PO AGITATION 03/25/20 13:45 03/30/20 11:45 Haloperidol (Haldol) 5 mg TID PO 03/19/20 09:00 03/25/20 11:16 DC 03/25/20 08:00 Haloperidol (Haldol) 10 mg BID PO 03/25/20 21:00 03/31/20 09:03 DC 03/31/20 08:27 Haloperidol (Haldol) 10 mg QHS PO 03/31/20 21:00 Haloperidol (Haldol) 10 mg STAT STAT IM 03/19/20 06:15 03/19/20 06:19 DC 03/19/20 06:48 Haloperidol (Haldol) 10 mg STAT STAT IM 03/19/20 06:55 03/19/20 06:58 DC 03/19/20 07:08 Home Med (Med Rec Complete!) ASDIRECTED XX 03/16/20 00:45 03/16/20 00:42 DC Lorazepam (Ativan) 2 mg Q8HP PRN PO AGITATION 03/25/20 13:45 03/30/20 21:31 Lorazepam (Ativan) 2 mg STAT STAT IM 03/19/20 06:15 03/19/20 06:19 DC 03/19/20 06:47 Lorazepam (Ativan) 2 mg STAT STAT IM 03/19/20 06:55 03/19/20 06:58 DC 03/19/20 07:08 Lorazepam (Ativan) 2 mg STAT STAT PO 03/25/20 11:16 03/25/20 11:17 DC 03/25/20 12:59 Lorazepam (Ativan) 2 mg STAT STAT PO 03/18/20 02:26 03/18/20 02:27 DC 03/18/20 02:40 Magnesium Hydroxide (Milk Of Magnesia) 30 ml DAILYPRN PRN PO CONSTIPATION 03/18/20 16:30 03/29/20 14:07 Nicotine (Nicoderm Cq 21mg) 1 patch DAILY TD 03/19/20 09:00 03/31/20 08:27 Nicotine (Nicorette) 4 mg Q4HP PRN PO NICOTINE WITHDRAWAL 03/18/20 21:15 Olanzapine (ZyPREXA) 5 mg Q6HP PRN PO AGITATION 03/18/20 16:30 03/25/20 13:42 DC 03/25/20 09:55 Paliperidone (Invega) 3 mg BID PO 03/18/20 21:00 03/19/20 08:54 DC 03/18/20 21:06 Phenyleph/Shark Oil/Min Oil/Petrol (Preparation H Ointment) 1 dose QIDP PRN DC ITCHING 03/28/20 17:30 Quetiapine Fumarate (SEROquel) 50 mg QHS PO 03/21/20 21:00 03/25/20 13:42 DC 03/24/20 20:00 Quetiapine Fumarate (SEROquel) 100 mg QHS PO 03/25/20 21:00 03/30/20 21:31 Trazodone HCl (Desyrel) 50 mg QHSP PRN PO INSOMNIA 03/18/20 16:30 03/30/20 21:30 Allergies Coded Allergies: NUTS (Verified Allergy, Unknown, 03/14/20) MELA CARDONA NP Mar 31, 2020 11:11
[2020-03-31] MEDS: haloperidoL 5 MG TAB PO PRN ×2 (11:36→22:41)
[2020-03-31 16:28] VITALS: BP 130/75
[2020-03-31] MEDS: QUEtiapine FUMARATE 100 MG TAB PO SCH (20:05)
[2020-03-31] MEDS: traZODone 50 MG TAB PO PRN (20:43)
[2020-03-31] MEDS: LORazepam 2 MG TAB PO PRN (22:41)
[2020-04-01 06:22] VITALS: BP 110/63
[2020-04-01] MEDS: BENZTROPINE 0.5 MG TAB PO SCH (08:44)
[2020-04-01] MEDS: NICOTINE 21MG/24HR 1 EA TRANSDERMAL TD SCH (08:44)
[2020-04-01] MEDS ORDERED: haloperidoL 5 MG TAB PO SCH (09:00)
--- NOTE | 2020-04-01 09:52 | MHDSPDOC ---
[facility] Discharge Summary Discharge Summary DATE OF ADMISSION: Mar 18, 2020 at 16:20 DATE OF DISCHARGE: Apr 01, 2020 at 0936 DISCHARGE DIAGNOSES: 1. unspecified psychotic disorder 2. Rule out substance induced psychotic disorder 3. hallucinogen use disorder REASON FOR ADMISSION: Patient is a 25 -year-old , male, who per the ED reports came to the emergency room on 03/14/20 for a "situational disturbance" where patient reported he was angry at his mother because she was "infringing on my parental rights" and wouldn't let him see his kids. At that visit he denied si/hi/ah/vh but did admit to smoking mushrooms because "has more things to talk about." At this presentation, Shahzad was observed in the ED to be religiously preoccupied, having two sided conversations, acting out communication roles in different voices, rambling/nonsensical speech, and singing. He was admitted on a 9.39 to [facility]. Per the sister, Shirley, she reports patient took mushrooms and that he was "talking to his grandmother, talking to himself, and talking to God.- saying some wild things." She reports he had used mushrooms twice, one JATIN and one New Year's day. sister thinks he is on a "bad trip. She reports that after he "cleared up from his trip, he was acting normal, was with a friend but after he left his friend's house he became bizarre again, hearing voices, and that he is "God's second hand." She encouraged him to come the the ED and he agreed. She states that he is upset with his mother and "his baby mama." He has been telling sister that the mother is the devil and will be "burning on earth." She states they haven't been getting along and that he has not been able to see his children in a long time, contributing to his drug use CONSULTANTS INVOLVED: See hospitalist H&P TREATMENT AND PROGRESS ON THE UNIT : Patient was admitted on a 9.39 to [facility] from the emergency room. Since admission, he was offered the following treatment modalities: 1) medication management and therapy 2)group therapy 3)individual therapy 4) mil therapy HOSPITAL COURSE: Shahzad self presented to [facility] Emergency Department, and was noted to be expressing psychotic symptoms (amish delusions, AH/VH, grandiosity). He was admitted on a 9.39 to [facility] for further stabilization. He has shown improvements in decreased psychotic symptoms since admissions and has been compliant with medication and treatment. He is requesting discharge at this time. DISCHARGE ASSESSMENT: Patient states hat his "mind is back to speed and is not nascar racing like it was when I first came in." He reports he feels "stable minded" and plans on returning to his girlfriend's parents home, where he has been living for the past year, states her famiy is supportive. He reports he intends on following up at [facility] after discharge for further psychiatric treatment. Shahzad is future oriented, looking forward to going back to work and talking to auctioneer automobile in regards to custody of his children. He denies having any ah/vh, amish delusions, and grandiosity He is reality based, not making any bizarre statements or amish at this time, does not appear to be internally preoccupied. He states, "I am just a normal human being, just like everyone else". Insight and judgment have improved, as he admits to using mushrooms before admission and is able to make the connection between his mushroom use and his psychotic symptoms. He states, "I was under a lot of stress and I shouldn't have used the mushrooms, I think that that is what ultimately made me feel this way." He reports he doesn't intend on using mushrooms in the future. This communications writer discussed the affects of hallucinogenic drugs on mental health with patient. Gait has returned to normal, patient denies and does not appear to be having any EPS side effects at this time. He denies si/hi/ depression and anxiety. MSE is normal and patient no longer meets involuntary criteria. He will be discharged per his request. MENTAL STATUS EXAMINATION: Patient is a 25-year old single, domiciled male, who presents with disheveled hair, wearing a mask. His dress is appropriate, hygiene and grooming is fair. Eye contact is good. Is not observed with psychomotor agitation or retardation Speech: Is fluid, conversant, normal rate, tone and volume Language skills are intact Thought processes including: linear and goal oriented Thought content: reporting decreased depression and decreased anxiety. Denies suicidal/homicidal ideation, planning or intent. Abstract reasoning, and computation: fair Description of associations: denies Description of abnormal or psychotic thoughts: denies Judgment: good Insight:good Orientation: A&O x3 Recent and remote memory: intact Attention span and concentration: average Language: average Fund of knowledge: average Mood: euthymic, Affect: flat MEDICATIONS ON DISCHARGE: Haldol 5 mg po daily Haldol 10 mg po qhs Cogentin 0.5 mg po bid PLAN/FOLLOWUP ARRANGEMENTS: [facility] - see associate financial planner notes The amount of time spent in the coordination of care for this patient was approximately 30 minutes. Vital Signs/I&Os Vital Signs Date Time Temp Pulse Resp B/P (MAP) Pulse Ox O2 Delivery O2 Flow Rate FiO2 04/01/20 08:58 Room Air 04/01/20 06:22 98.3 70 14 110/63 (79) 100 Medications Scheduled Benztropine Mesylate (Benztropine Mesylate) 0.5 Mg Tablet, 0.5 MG PO BID for EPS side effects, #14 Haloperidol (Haloperidol) 10 Mg Tablet, 10 MG PO QHS for psychosis, #7 Haloperidol (Haloperidol) 5 Mg Tablet, 5 MG PO DAILY for psychosis, #7 Scheduled PRN Docusate Sodium (Dok) 100 Mg Capsule, 100 MG PO DAILYPRN PRN for CONSTIPATION, #7 Allergies Coded Allergies: NUTS (Verified Allergy, Unknown, 03/14/20) MELA CARDONA NP Apr 01, 2020 09:19
== END 2020-04-01 13:00 | disposition home or self-care (01) | DRG 751 ==
LOC: M ED 22:58 → M ED INP 03-18 16:20 → M PSY 03-18 17:08
PROVIDERS: ADMIT Psychiatry & Neurology Psychiatry; ATTEND Psychiatry & Neurology Psychiatry
DX: F29 Unspecified psychosis not due to a substance or known physiological condition (principal); F16.90 Hallucinogen use, unspecified, uncomplicated; Z91.010 Allergy to peanuts

== ENCOUNTER 2020-04-09 09:59 | Inpatient (IN) | payer SELFPAY ==
[~2020-04-09] VITALS: Ht 180.3 cm; Wt 75.7 kg
[~2020-04-09 09:59] MED LIST: BENZ0.5T23 PO; DOK1CAP7 PO; HALO10TA20 PO; HALO5TA PO
--- OUTSIDE RECORDS SUMMARY | 2020-04-09 10:04 | CCD | Continuity of Care Document ---
Author Author Shahzad DOLAN [facility] Organization Unknown Address [address] [place] [address] Phone [phone] Problems Description No Information Available Social History Type Date Description Comments Sex Unknown Allergies, Adverse Reactions, Alerts Description No Information Available Medications Description No Information Available Immunizations Description No Information Available Vital Signs Description No Information Available Results Description No Information Available Procedures Description No Information Available Medical Devices Description No Information Available Encounters Description No Information Available Assessments Description No Information Available Plan of Treatment Future Appointment(s):* 04/09/2020 1:00 pm - Zoie Chaney MD at [facility] Functional Status Description No Information Available Mental Status Description No Information Available Referrals Description No Information Available
--- OUTSIDE RECORDS SUMMARY | 2020-04-09 10:04 | CCD ---
Author Author [facility] Organization [facility] Address Unknown Phone Unavailable Care Team Providers Care Chucking Machine Operator Name Role Phone Rocaelrosalinda Tramaine Mindy PRODUCT MARKETING CONSULTANT Unavailable Unavailable Kunnumpurath, F Zoie MD Unavailable Unavailable Kunnumpurath, F Zoie MD Unavailable Unavailable Kunnumpurath, F Zoie MD Unavailable Unavailable Kunnumpurath, F Zoie MD Unavailable Unavailable Kunnumpurath, F Zoie MD Unavailable Unavailable Kunnumpurath, F Zoie MD Unavailable Unavailable Kunnumpurath, F Zoie MD Unavailable Unavailable Kunnumpurath, F Zoie MD Unavailable Unavailable Kunnumpurath, F Zoie MD Unavailable Unavailable Kunnumpurath, F Zoie MD Unavailable Unavailable Kunnumpurath, F Zoie MD Unavailable Unavailable Kunnumpurath, F Zoie MD Unavailable Unavailable Kunnumpurath, F Zoie MD Unavailable Unavailable Kunnumpurath, F Zoie MD Unavailable Unavailable Kunnumpurath, F Zoie MD Unavailable Unavailable Kunnumpurath, F Zoie MD Unavailable Unavailable Kunnumpurath, F Zoie MD Unavailable Unavailable Kunnumpurath, F Zoie MD Unavailable Unavailable Kunnumpurath, F Zoie MD Unavailable Unavailable Kunnumpurath, F Zoie MD Unavailable Unavailable Kunnumpurath, F Zoie MD Unavailable Unavailable Kunnumpurath, F Zoie MD Unavailable Unavailable Kunnumpurath, F Zoie MD Unavailable Unavailable Kunnumpurath, F Zoie MD Unavailable Unavailable Kunnumpurath, F Zoie MD Unavailable Unavailable Kunnumpurath, F Zoie MD Unavailable Unavailable Kunnumpurath, F Zoie MD Unavailable Unavailable Kunnumpurath, F Zoie MD Unavailable Unavailable Kunnumpurath, F Zoie MD Unavailable Unavailable Kunnumpurath, F Zoie MD Unavailable Unavailable Kunnumpurath, F Zoie MD Unavailable Unavailable Kunnumpurath, F Zoie MD Unavailable Unavailable Kunnumpurath, F Zoie MD Unavailable Unavailable Kunnumpurath, F Zoie MD Unavailable Unavailable Kunnumpurath, F Zoie MD Unavailable Unavailable Kunnumpurath, F Zoie MD Unavailable Unavailable Kunnumpurath, F Zoie MD Unavailable Unavailable Kunnumpurath, F Zoie MD Unavailable Unavailable Re-disclosure Warning The records that you are about to access may contain information from federally-assisted alcohol or drug abuse programs. If such information is present, then the following federally mandated warning applies: This information has been disclosed to you from records protected by federal confidentiality rules (42 CFR part 2). The federal rules prohibit you from making any further disclosure of this information unless further disclosure is expressly permitted by the written consent of the person to whom it pertains or as otherwise permitted by 42 CFR part 2. A general authorization for the release of medical or other information is NOT sufficient for this purpose. The Federal rules restrict any use of the information to criminally investigate or prosecute any alcohol or drug abuse patient.The records that you are about to access may contain highly sensitive health information, the redisclosure of which is protected by Article 27-F of the [place] [facility] Public Health law. If you continue you may have access to information: Regarding HIV / AIDS; Provided by facilities licensed or operated by the [facility] [employer] Office of Mental Health; or Provided by the [facility] Office for People With Developmental Disabilities. If such information is present, then the following [facility] mandated warning applies: This information has been disclosed to you from confidential records which are protected by state law. State law prohibits you from making any further disclosure of this information without the specific written consent of the person to whom it pertains, or as otherwise permitted by law. Any unauthorized further disclosure in violation of state law may result in a fine or detention sentence or both. A general authorization for the release of medical or other information is NOT sufficient authorization for further disc losure. Encounters Encounter Providers Location Date Indications Data Source(s ) Outpatient Attender: Zoie Chaney MD 0 04/09/2020 08:05:00 AM EST - 04/09/2020 08:05:00 AM [facility] Outpatient Attender: Mindy Gutiérrez LMSW 07:52:00 AM EST - 04/07/2020 07:52:00 AM EST [facility] Insurance Providers Payer name Policy type / Coverage type Policy ID Covered constitution party ID Covered constitution party's relationship to lees Policy Lees Plan Information SELF PAY ONLY [id number] Surgeries/Procedures Procedure Description Date Indications Data Source(s) Brief Emotional/Behav Assessment W/ Scoring Doc Per Standard Inst 04/09/2020 12:00:00 AM EST [facility] ([facility]) Admin Patient Focused Health Risk Assessment Instrument 04/09/2020 12:00:00 AM EST [facility] ([facility]) Psychiatric Diagnostic Evaluation 04/07/2020 12:00:00 AM EST [facility] ([facility]) Results ID Date Data Source [id number] 03/16/2020 12:49:00 PM EST [facility] Name Value Range Interpretation Code Description Data Yue rce(s) Supporting Document(s) SARS coronavirus 2 RNA [Presence] in Res piratory specimen by RYAN with probe detection [facility] This lab was ordered by [facility] a nd reported by [facility]. Procedure Vital Signs ID Date Data Source UNK Name Value Range Interpretation Code Description Data Source(s) Body surface area Derived from formula 1.93 m2 1.93 m2 [facility] ([facility]) Body mass index (BMI) [Ratio] 22.7 kg/m2 22.7 k g/m2 [facility] ([facility]) Body height 71 [in_i] 71 [in_i] [facility] ([facility]) 5'11" Body weight 73.710 kg 73.710 kg [facility] ([facility]) Body weight 162.50 [lb_av] 162.50 [lb_av] [facility] ([facility]) Oxygen saturation in Arterial blood by Pulse oximetry 96 % 96 % [facility] ([facility]) Respiratory rate 16 /min 16 /min [facility] ( [facility]) Body temperature 97.5 [degF] 97.5 [degF] [facility] ([facility]) Heart rate 70 /min 70 /min [facility] (Health system) Diastolic blood pressure 66 mm[Hg] 66 mm[Hg] [facility] ([facility]) Systolic blood pressure 108 mm[Hg] 108 mm[Hg] Ayad DAVID ([facility])
--- OUTSIDE RECORDS SUMMARY | 2020-04-09 10:49 | CCD ---
Author Author [facility] Organization [facility] Address Unknown Phone Unavailable Care Team Providers Care Grain Mill Worker Name Role Phone Tramaine Gutiérrez LMSW Unavailable Unavailable Kunnumpurath, F Zoie MD Unavailable [...] is protected by Article 27-F of the [facility] Public Health law. If you continue you may have access to information: Regarding HIV / AIDS; Provided by facilities licensed or operated by the [facility] Office of Mental Health; or Provided by the [facility] Office for People With Developmental Disabilities. If such information is present, then the following [facility] mandated warning applies: This information has been [...] law may result in a fine or prison sentence or both. A general authorization for the release of medical or other information is NOT sufficient authorization for further disc losure. Encounters Encounter Providers Location Date Indications Data Source(s ) Outpatient Attender: Zoie Chaney MD 0 04/09/2020 08:05:00 AM EST - 04/09/2020 08:05:00 AM EST [facility] Outpatient Attender: Mindy Gutiérrez LMSW 07:52:00 AM EST - 04/07/2020 07:52:00 AM EST [facility] Insurance Providers Payer name Policy type / Coverage type Policy ID Covered constitution party ID Covered constitution party's relationship to lees Policy Lees Plan Information SELF PAY ONLY [id number] Surgeries/Procedures Procedure Description Date Indications Data Source(s) Brief Emotional/Behav Assessment W/ Scoring Doc Per Standard Inst 04/09/2020 12:00:00 AM EST [facility] ([facility]) Admin Patient Focused Health Risk Assessment Instrument 04/09/2020 12:00:00 AM EST [facility] ([facility]) Psychiatric Diagnostic Evaluation 04/07/2020 12:00:00 AM EST [facility] ([facility]) Results ID Date Data Source [id number] 03/16/2020 12:49:00 PM EST [facility] Name Value Range Interpretation Code Description Data Yue rce(s) Supporting Document(s) SARS coronavirus 2 RNA [Presence] in Res piratory specimen by RYAN with probe detection [facility] This lab was ordered by [facility] a nd reported by [facility]. Procedure Vital Signs ID Date Data Source UNK Name Value Range Interpretation Code Description Data Source(s) Body surface area Derived from formula 1.93 m2 1.93 m2 [facility] ([facility]) Body mass index (BMI) [Ratio] 22.7 kg/m2 22.7 k g/m2 [facility] ([facility]) Body height 71 [in_i] 71 [in_i] [facility] ([facility]) 5'11" Body weight 73.710 kg 73.710 kg [facility] ([facility]) Body weight 162.50 [lb_av] 162.50 [lb_av] [facility] T ([facility]) Oxygen saturation in Arterial blood by Pulse oximetry 96 % 96 % [facility] ([facility]) Respiratory rate 16 /min 16 /min [facility] ( [facility]) Body temperature 97.5 [degF] 97.5 [degF] [facility] ([facility]) Heart rate 70 /min 70 /min [facility] ([facility]) Diastolic blood pressure 66 mm[Hg] 66 mm[Hg] [facility] Systolic blood pressure 108 mm[Hg] 108 mm[Hg] [facility] ([facility])
[2020-04-09 10:57] LABS: HEMOGLOBIN 14.7 g/dl (13.5-17.5); MEAN CORPUSCULAR HEMOGLOBIN 28.8 pg (27.0-33.0); MEAN CORPUSCULAR HGB CONC 33.4 g/dl (32.0-36.5); MEAN CORPUSCULAR VOLUME 86.3 fl (80.0-96.0); PLATELET COUNT, AUTOMATED 293 10^3/uL (150-450); WHITE BLOOD COUNT 8.9 10^3/uL (4.0-10.0)
[2020-04-09 11:28] LABS: ACETAMINOPHEN LEVEL < 2.0 UG/ML (10.0-30.0); ALBUMIN 4.4 GM/DL (3.2-5.2); ALT/SGPT 27 U/L (12-78); AMPHETAMINES LEVEL URINE NEGATIVE (NEGATIVE); BARBITURATES URINE NEGATIVE (NEGATIVE); BENZODIAZEPINES URINE NEGATIVE (NEGATIVE); BILIRUBIN,DIRECT 0.1 MG/DL (0.0-0.2); BILIRUBIN,TOTAL 0.4 MG/DL (0.2-1.0); BLOOD UREA NITROGEN 10 MG/DL (7-18); CALCIUM LEVEL 9.6 MG/DL (8.5-10.1); CANNABINOIDS URINE POSITIVE (NEGATIVE); CARBON DIOXIDE LEVEL 29 MEQ/L (21-32); CHLORIDE LEVEL 104 MEQ/L (98-107); COCAINE METABOLITE URINE NEGATIVE (NEGATIVE); CREATININE FOR GFR 0.88 MG/DL (0.70-1.30); ETHYL ALCOHOL (ETHANOL) < 0.003 % (0.000-0.010); GLOMERULAR FILTRATION RATE > 60.0 (>60); GLUCOSE, FASTING 89 MG/DL (70-100); METHADONE URINE NEGATIVE (NEGATIVE); OPIATES URINE NEGATIVE (NEGATIVE); PHENCYCLIDINE URINE NEGATIVE (NEGATIVE); POTASSIUM SERUM 3.7 MEQ/L (3.5-5.1); SALICYLATE LEVEL < 1.7 MG/DL (5.0-30.0); SODIUM LEVEL 138 MEQ/L (136-145); TOTAL PROTEIN 7.9 GM/DL (6.4-8.2)
[2020-04-09] MEDS ORDERED: BENZ0.5T23 PO (14:06)
[2020-04-09] MEDS ORDERED: HALO10TA20 PO (14:06)
[2020-04-09] MEDS ORDERED: COLA100C5 PO (14:06)
[2020-04-09] MEDS ORDERED: HALO5TA PO (14:06)
[2020-04-09] MEDS ORDERED: NICOTINE 21MG/24HR 1 EA TRANSDERMAL TD ONE (15:45)
[2020-04-09] MEDS ORDERED: MAALOX 30 ML SUSP *UDC PO PRN (16:00)
[2020-04-09] MEDS ORDERED: MOM 30ML SUSPENSION UDC PO PRN (16:00)
[2020-04-09] MEDS ORDERED: DOCUSATE SODIUM 100MG CAPSULE PO PRN (16:00)
--- OUTSIDE RECORDS SUMMARY | 2020-04-09 16:09 | CCD ---
Author Author [facility] Organization [facility] Address Unknown Phone Unavailable Care Team Providers Care Project Management Analyst Name Role Phone Tramaine Gutiérrez LMSW Unavailable [...] is protected by Article 27-F of the [facility] Public Health law. If you continue you may have access to information: Regarding HIV / AIDS; Provided by facilities licensed or operated by the [facility] Office of Mental Health; or Provided by the [facility] Office for People With Developmental Disabilities. If such information is present, then the following [facility] mandated warning applies: This information has been [...] law may result in a fine or care home sentence or both. A general authorization for the release of medical or other information is NOT sufficient authorization for further disc losure. Encounters Encounter Providers Location Date Indications Data Source(s ) Outpatient Attender: Zoie Chaney MD 0 04/09/2020 08:05:00 AM EST - 04/09/2020 08:05:00 AM EST [facility] Outpatient Attender: Mindy Gutiérrez LMSW 07:52:00 AM EST - 04/07/2020 07:52:00 AM EST [facility] Insurance Providers Payer name Policy type / Coverage type Policy ID Covered green party ID Covered green party's relationship to lees Policy Lees Plan Information SELF PAY ONLY [id number] Surgeries/Procedures Procedure Description Date Indications Data Source(s) Brief Emotional/Behav Assessment W/ Scoring Doc Per Standard Inst 04/09/2020 12:00:00 AM EST [facility] ([facility]) Admin Patient Focused Health Risk Assessment Instrument 04/09/2020 12:00:00 AM EST [facility] ([facility]) Psychiatric Diagnostic Evaluation 04/07/2020 12:00:00 AM EST [facility] ([facility]) Results ID Date Data Source [id number] 03/16/2020 12:49:00 PM EST [facility] Name Value Range Interpretation Code Description Data Yue rce(s) Supporting Document(s) SARS coronavirus 2 RNA [Presence] in Res piratory specimen by RYAN with probe detection [facility] This lab was ordered by [facility] a nd reported by [facility]. Procedure Vital Signs ID Date Data Source UNK Name Value Range Interpretation Code Description Data Source(s) Body surface area Derived from formula 1.93 m2 1.93 m2 [facility] ([facility]) Body mass index (BMI) [Ratio] 22.7 kg/m2 22.7 k g/m2 [facility] ([facility]) Body height 71 [in_i] 71 [in_i] [facility] ([facility]) 5'11" Body weight 73.710 kg 73.710 kg [facility] ([facility]) Body weight 162.50 [lb_av] 162.50 [lb_av] [facility] ([facility]) Oxygen saturation in Arterial blood by Pulse oximetry 96 % 96 % [facility] ([facility]) Respiratory rate 16 /min 16 /min [facility] ( [facility]) Body temperature 97.5 [degF] 97.5 [degF] [facility] ([facility]) Heart rate 70 /min 70 /min [facility] ([facility]) Diastolic blood pressure 66 mm[Hg] 66 mm[Hg] [facility] Systolic blood pressure 108 mm[Hg] 108 mm[Hg] [facility] ([facility])
[2020-04-09 16:49] LABS: RSV AMPLIFICATION NEGATIVE (NEGATIVE)
[2020-04-09 17:28] VITALS: BP 133/83
[2020-04-09] MEDS ORDERED: BENZTROPINE 2 MG TAB PO ONE (18:00)
[2020-04-09] MEDS: LORazepam 1 MG TAB PO PRN ×2 (18:34→22:47)
[2020-04-09] MEDS: BENZTROPINE 0.5 MG TAB PO SCH (21:14)
[2020-04-09] MEDS ORDERED: hydrOXYzine 25 MG TAB PO PRN (21:45)
[2020-04-09] MEDS ORDERED: haloperidoL 5 MG TAB PO ONE (23:15)
[2020-04-09] MEDS ORDERED: LORazepam 1 MG TAB PO ONE (23:15)
[2020-04-09] MEDS ORDERED: diphenhydrAMINE 50MG CAP PO ONE (23:15)
[2020-04-10 06:21] VITALS: BP 121/83
[2020-04-10] MEDS ORDERED: haloperidoL 5 MG TAB PO SCH (09:00)
[2020-04-10] MEDS: BENZTROPINE 0.5 MG TAB PO SCH ×2 (09:10→19:43)
[2020-04-10] MEDS: LORazepam 1 MG TAB PO PRN ×2 (09:53→19:43)
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
[2020-04-10] MEDS: NICOTINE 21MG/24HR 1 EA TRANSDERMAL TD SCH (19:09)
[2020-04-10 19:29] VITALS: BP 147/72
[2020-04-10] MEDS: haloperidoL 5 MG TAB PO SCH (19:43)
[2020-04-10] MEDS: hydrOXYzine 50 MG TAB PO PRN (20:14)
[2020-04-11] MEDS: hydrOXYzine 50 MG TAB PO PRN ×3 (03:22→21:36)
[2020-04-11 06:42] VITALS: BP 120/76
[2020-04-11] MEDS: NICOTINE 21MG/24HR 1 EA TRANSDERMAL TD SCH (08:12)
[2020-04-11] MEDS: BENZTROPINE 0.5 MG TAB PO SCH ×2 (08:12→19:28)
[2020-04-11] MEDS: haloperidoL 5 MG TAB PO SCH (09:00)
[2020-04-11] MEDS: LORazepam 1 MG TAB PO PRN ×2 (11:46→17:50)
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
--- NOTE | 2020-04-11 16:59 | MHIPNPDOC ---
[facility] Progress Note Progress Note DATE OF SERVICE: 04/11/20--- The patient was evaluated using ZOOM due to Coronavirus pandemic HISTORY: Patient is a 25 -year-old , male, who was recently discharged from [facility] on 04/01/20 after he was treated for psychotic disorder, likely related to hallucinogenic use. He states he came to the emergency room because he wanted to be reevaluated "for the drugs you have me on, because he thought it made him feel worse." He states that since discharge he has been walking slowly, has been restless and nervous, with poor sleep (about 3-4 hours per night), and "zoning out." He reports, "'when I was on the outside taking haldol, it was different that when I was taking it here. I was good here when I was taking it." He states that he took haldol the night before he came to the emergency room and that since discharge on 04/01/20, he reports he smoked marijuana daily but has not used any other substances. Today, he denies ah/vh, does have druze delusions, states he feels closer to God, "in a good way, the holy spirit is in me. I had a spiritual awakening, its not from the shrooms like you guys think though. God just gave me so much information at once." He denies any suicidal thoughts, reports the last time he was having suicidal thoughts was two nights ago, relates this to a side effect of the haldol, denied any plan or intent. VITAL SIGNS: See below. NEW TEST RESULTS: See below CURRENT MEDICATIONS: See below. MENTAL STATUS EXAMINATION: General Appearance: disheveled, hospital scubs/clothing Build: average Demeanor: average Eye Contact: average Activity: average Behavior: cooperative Speech: clear, spontaneous, normal volume, reg/rate,rhythm,volume, other (hyperverbal) Mood: anxious Affect: congruent with mood, full, reactive Thought Process: a little bit circumstantial and perseverative ( about Haldol side effects) Thought Content (Delusions): druze preoccupations Thought Content (Other): none reported Thought Content (Aggressive): none reported Perception (Hallucinations): none reported Perception (Other): none reported Cognition (Impairment of): none reported Cognition(Intelligence Est.): average Oriented: Awake, Alert, Oriented times three Insight: fair Judgment: Fair Psychosis: Psychotic Perceptions (religously preoccupied ) Diagnoses unspecified psychotic disorder Rule out substance induced psychotic disorder hallucinogen use disorder marijuana use disorder ASSESSMENT: He says he doesn't like to take Haldol, it limits him on his abilities. Reports abnormal movements and feeling "weird" when he takes it. He says he doesn't want to take this medication and when I offered him Zyprexa he said he would gladly take it, saying "No, I don't mind Zyprexa, Zyprexa is a nice drug". He admitted using drugs, particularly mushrooms before his admission. Will discontinue Haldol and start Zyprexa to help with compliance and adherence. He says he is OK with Hydroxyzine, he is OK with Lorazepam. He reports understanding he was catatonic on his admission and he thinks he has improved, but would be better off Haldol. MANAGEMENT PLAN: Discontinue Haldol 5 mgs PO BID -Start Zyprexa 5 mgs PO BID TIME SPENT: 20 minutes. Vital Signs Vital Signs Date Time Temp Pulse Resp B/P (MAP) Pulse Ox O2 Delivery O2 Flow Rate FiO2 04/11/20 06:42 97.9 80 16 120/76 (91) 99 Room Air Current Medications Current Medications Medications (Trade) Dose Ordered Sig/Jennifer Route PRN Reason Start Time Stop Time Status Last Admin Dose Admin Al Hydrox/Mg Hydrox/Simethicone (Mylanta) 30 ml Q4HP PRN PO HEARTBURN/INDIGESTION 04/09/20 16:00 Benztropine Mesylate (Cogentin) 0.5 mg BID PO 04/09/20 21:00 04/11/20 08:12 Docusate Sodium (Colace) 100 mg DAILYPRN PRN PO constipation 04/09/20 16:00 Haloperidol (Haldol) 5 mg BID PO 04/10/20 21:00 04/10/20 19:43 Haloperidol (Haldol) 5 mg DAILY PO 04/10/20 09:00 04/10/20 12:13 DC Haloperidol (Haldol) 10 mg QHS PO 04/09/20 21:00 Cancel Home Med (Med Rec Complete!) ASDIRECTED XX 04/09/20 14:15 04/09/20 14:14 DC Hydroxyzine HCl (Atarax) 50 mg Q4HP PRN PO ANXIETY 04/09/20 21:45 04/10/20 18:20 DC 04/09/20 21:38 Hydroxyzine HCl (Atarax) 50 mg Q4HP PRN PO ANXIETY 04/10/20 18:20 04/11/20 03:22 Ibuprofen (Advil) 400 mg Q6HP PRN PO PAIN 04/09/20 16:00 Lorazepam (Ativan) 1 mg Q4HP PRN PO Anxiety/ catatonia 04/09/20 18:00 04/11/20 11:46 Magnesium Hydroxide (Milk Of Magnesia) 30 ml DAILYPRN PRN PO CONSTIPATION 04/09/20 16:00 Nicotine (Nicoderm Cq 21mg) 1 patch DAILY TD 04/10/20 09:00 04/11/20 08:12 Allergies Coded Allergies: NUTS (Verified Allergy, Unknown, 03/14/20) KILLIAN PICKETT MD Apr 11, 2020 14:29
[2020-04-11 18:07] VITALS: BP 134/72
[2020-04-11] MEDS: OLANZapine ORAL DISINTEGRATING TAB 5MG PO SCH (19:28)
[2020-04-11] MEDS: IBUPROFEN 400 MG TAB PO PRN (21:37)
[2020-04-12] MEDS: LORazepam 1 MG TAB PO PRN ×2 (01:52→09:40)
[2020-04-12] MEDS: hydrOXYzine 50 MG TAB PO PRN ×2 (01:52→19:33)
[2020-04-12] MEDS: IBUPROFEN 400 MG TAB PO PRN (05:30)
[2020-04-12 06:27] VITALS: BP 137/85
[2020-04-12] MEDS: OLANZapine ORAL DISINTEGRATING TAB 5MG PO SCH ×2 (08:07→19:58)
[2020-04-12] MEDS: NICOTINE 21MG/24HR 1 EA TRANSDERMAL TD SCH (08:07)
[2020-04-12] MEDS: BENZTROPINE 0.5 MG TAB PO SCH ×2 (08:07→19:58)
--- NOTE | 2020-04-12 17:24 | MHIPNPDOC ---
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 He states he came to the [facility] ency room because he wanted to be reevaluated "for the drugs you have me on, because he thought it made him feel worse." He states that since discharge he has been walking slowly, has been restless and nervous, with poor sleep (about 3-4 hours per night), and "zoning out." He reports, "'when I was on the outside taking haldol, it was different that when I was taking it here. I was good here when I was taking it." He states that he took haldol the night before he came to the emergency room and that since discharge on 04/01/20, he reports he smoked marijuana daily but has not used any other substances. Today, he denies ah/vh, does have sabianism delusions, states he feels closer to God, "in a good way, the holy spirit is in me. I had a spiritual awakening, its not from the shrooms like you guys think though. God just gave me so much information at once." He denies any suicidal thoughts, reports the last time he was having suicidal thoughts was two nights ago, relates this to a side effect of the haldol, denied any plan or intent. VITAL SIGNS: See below. NEW TEST RESULTS: See below CURRENT MEDICATIONS: See below. MENTAL STATUS EXAMINATION: General Appearance: disheveled, hospital scubs/clothing Build: average Demeanor: average,cooperative Eye Contact: good eye contact Activity: calm, cooperative Behavior: cooperative Speech: clear, spontaneous, normal volume, reg/rate,rhythm,volume Mood: euthymic Affect: congruent with mood, full, reactive Thought Process: linear an coherent Thought Content (Delusions): denies paranoid delusions, denies bizarre delusions, denies grandiose delusions Thought Content (Other): none reported Thought Content (Aggressive): none reported Perception (Hallucinations): none reported Perception (Other): none reported Cognition (Impairment of): none reported Cognition(Intelligence Est.): average Oriented: Awake, Alert, Oriented times three Insight: fair Judgment: Fair Psychosis: Denies Diagnoses unspecified psychotic disorder Rule out substance induced psychotic disorder hallucinogen use disorder marijuana use disorder ASSESSMENT: patient says he feels better now that he is taking Zyprexa. He says he will continue taking it once he is discharged from the Hospital. Today his thoughts are more organized, his affect is less constricted, he is improved. It would be good if he realized that drugs are contributing to his psychosis, but it seems he is not rady at this time, to make major changes in that area. Patient is stable at this time. MANAGEMENT PLAN: Discontinue Haldol 5 mgs PO BID -Start Zyprexa 5 mgs PO BID TIME SPENT: 15 minutes. Vital Signs Vital Signs Date Time Temp Pulse Resp B/P (MAP) Pulse Ox O2 Delivery O2 Flow Rate FiO2 04/12/20 06:27 97.7 78 20 137/85 (102) 98 Room Air Current Medications Current Medications Medications (Trade) Dose Ordered Sig/Jennifer Route PRN Reason Start Time Stop Time Status Last Admin Dose Admin Al Hydrox/Mg Hydrox/Simethicone (Mylanta) 30 ml Q4HP PRN PO HEARTBURN/INDIGESTION 04/09/20 16:00 Benztropine Mesylate (Cogentin) 0.5 mg BID PO 04/09/20 21:00 04/12/20 08:07 Docusate Sodium (Colace) 100 mg DAILYPRN PRN PO constipation 04/09/20 16:00 Haloperidol (Haldol) 5 mg BID PO 04/10/20 21:00 04/11/20 14:33 DC 04/10/20 19:43 Haloperidol (Haldol) 5 mg DAILY PO 04/10/20 09:00 04/10/20 12:13 DC Haloperidol (Haldol) 10 mg QHS PO 04/09/20 21:00 Cancel Home Med (Med Rec Complete!) ASDIRECTED XX 04/09/20 14:15 04/09/20 14:14 DC Hydroxyzine HCl (Atarax) 50 mg Q4HP PRN PO ANXIETY 04/09/20 21:45 04/10/20 18:20 DC 04/09/20 21:38 Hydroxyzine HCl (Atarax) 50 mg Q4HP PRN PO ANXIETY 04/10/20 18:20 04/12/20 01:52 Ibuprofen (Advil) 400 mg Q6HP PRN PO PAIN 04/09/20 16:00 04/12/20 05:30 Lorazepam (Ativan) 1 mg Q4HP PRN PO Anxiety/ catatonia 04/09/20 18:00 04/12/20 09:40 Magnesium Hydroxide (Milk Of Magnesia) 30 ml DAILYPRN PRN PO CONSTIPATION 04/09/20 16:00 Nicotine (Nicoderm Cq 21mg) 1 patch DAILY TD 04/10/20 09:00 04/12/20 08:07 Olanzapine (ZyPREXA ZYDIS) 5 mg BID PO 04/11/20 21:00 04/12/20 08:07 Allergies Coded Allergies: NUTS (Verified Allergy, Unknown, 03/14/20) KILLIAN PICKETT MD Apr 12, 2020 15:33
[2020-04-13 06:59] VITALS: BP 137/80
[2020-04-13] MEDS: OLANZapine ORAL DISINTEGRATING TAB 5MG PO SCH ×2 (08:11→21:13)
[2020-04-13] MEDS: BENZTROPINE 0.5 MG TAB PO SCH ×2 (08:11→21:13)
[2020-04-13] MEDS: NICOTINE 21MG/24HR 1 EA TRANSDERMAL TD SCH (08:11)
[2020-04-13] MEDS ORDERED: diphenhydrAMINE 50MG/ML VIAL (J1200) IM STA (09:21)
[2020-04-13] MEDS ORDERED: HALOPERIDOL 5MG/ML VIAL (J1630 PER 1) IM STA (09:21)
[2020-04-13] MEDS ORDERED: LORazepam 2 MG/ML VIAL IM STA (09:21)
[2020-04-13 09:30] VITALS: BP 176/99
[2020-04-13 10:00] VITALS: BP 117/56
--- NOTE | 2020-04-13 14:37 | MHIPNPDOC ---
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 He states he came to the emergency room because he wanted to be reevaluated "for the drugs you have me on, because he thought it made him feel worse." He states that since discharge he has been walking slowly, has been restless and nervous, with poor sleep (about 3-4 hours per night), and "zoning out." He reports, "'when I was on the outside taking haldol, it was different that when I was taking it here. I was good here when I was taking it." He states that he took haldol the night before he came to the emergency room and that since discharge on 04/01/20, he reports he smoked marijuana daily but has not used any other substances. Today, he denies ah/vh, does have mormon delusions, states he feels closer to God, "in a good way, the holy spirit is in me. I had a spiritual awakening, its not from the shrooms like you guys think though. God just gave me so much information at once." He denies any suicidal thoughts, reports the last time he was having suicidal thoughts was two nights ago, relates this to a side effect of the haldol, denied any plan or intent. VITAL SIGNS: See below. CURRENT MEDICATIONS: See below. MENTAL STATUS EXAMINATION: General Appearance: disheveled, hospital scrubs/clothing Build: average Demeanor: average,cooperative Eye Contact: good eye contact Activity: calm, cooperative Behavior: cooperative Speech: clear, spontaneous, normal volume, reg/rate,rhythm,volume Mood: euthymic Affect: congruent with mood, full, reactive Thought Process: linear an coherent Thought Content (Delusions): denies paranoid delusions, denies bizarre delusions, denies grandiose delusions, religiously preoccupied Thought Content (Other): none reported Thought Content (Aggressive): none reported Perception (Hallucinations): none reported Perception (Other): none reported Cognition (Impairment of): none reported Cognition(Intelligence Est.): average Oriented: Awake, Alert, Oriented times three Insight: poor Judgment: poor Psychosis: Denies Diagnoses unspecified psychotic disorder Rule out substance induced psychotic disorder hallucinogen use disorder marijuana use disorder ASSESSMENT:This morning Shahzad was in the hallway singing very loudly in the hallway. He was not redirect able. When asked if he could be quieter, he became very angry toward staff, yelling that it was his right to proclaim his shruthi. He had to be physically and chemically restrained, given Benadryl 50 mg IM, Haldol 10 mg IM, and Ativan 2 mg IM. Since the incident, has been resting in room. When he was approached for interview, he was sedated, talking with eyes closed. He is able to answer some questions, states I am feeling 100% better, even aft er all of this, Id still like to discuss about leaving tomorrow. Insight and judgement are poor and due to sedation, he is unable to engage in meaningful conversation MANAGEMENT PLAN: Continue all medications TIME SPENT: 25 minutes. Vital Signs Vital Signs Date Time Temp Pulse Resp B/P (MAP) Pulse Ox O2 Delivery O2 Flow Rate FiO2 04/13/20 10:15 Room Air 04/13/20 10:00 98.3 81 18 117/56 97 Current Medications Current Medications Medications (Trade) Dose Ordered Sig/Jennifer Route PRN Reason Start Time Stop Time Status Last Admin Dose Admin Al Hydrox/Mg Hydrox/Simethicone (Mylanta) 30 ml Q4HP PRN PO HEARTBURN/INDIGESTION 04/09/20 16:00 Benztropine Mesylate (Cogentin) 0.5 mg BID PO 04/09/20 21:00 04/13/20 08:11 Diphenhydramine HCl (Benadryl) 50 mg STAT STAT IM 04/13/20 09:21 04/13/20 09:23 DC 04/13/20 09:30 Docusate Sodium (Colace) 100 mg DAILYPRN PRN PO constipation 04/09/20 16:00 Haloperidol (Haldol) 5 mg BID PO 04/10/20 21:00 04/11/20 14:33 DC 04/10/20 19:43 Haloperidol (Haldol) 5 mg DAILY PO 04/10/20 09:00 04/10/20 12:13 DC Haloperidol (Haldol) 10 mg QHS PO 04/09/20 21:00 Cancel Haloperidol (Haldol) 10 mg STAT STAT IM 04/13/20 09:21 04/13/20 09:23 DC 04/13/20 09:29 Home Med (Med Rec Complete!) ASDIRECTED XX 04/09/20 14:15 04/09/20 14:14 DC Hydroxyzine HCl (Atarax) 50 mg Q4HP PRN PO ANXIETY 04/09/20 21:45 04/10/20 18:20 DC 04/09/20 21:38 Hydroxyzine HCl (Atarax) 50 mg Q4HP PRN PO ANXIETY 04/10/20 18:20 04/12/20 19:33 Ibuprofen (Advil) 400 mg Q6HP PRN PO PAIN 04/09/20 16:00 04/12/20 05:30 Lorazepam (Ativan) 1 mg Q4HP PRN PO Anxiety/ catatonia 04/09/20 18:00 04/12/20 09:40 Lorazepam (Ativan) 2 mg STAT STAT IM 04/13/20 09:21 04/13/20 09:23 DC 04/13/20 09:29 Magnesium Hydroxide (Milk Of Magnesia) 30 ml DAILYPRN PRN PO CONSTIPATION 04/09/20 16:00 Nicotine (Nicoderm Cq 21mg) 1 patch DAILY TD 04/10/20 09:00 04/13/20 08:11 Olanzapine (ZyPREXA ZYDIS) 5 mg BID PO 04/11/20 21:00 04/13/20 08:11 Allergies Coded Allergies: NUTS (Verified Allergy, Unknown, 03/14/20) MELA CARDONA NP Apr 13, 2020 14:31
[2020-04-14] MEDS: IBUPROFEN 400 MG TAB PO PRN (02:19)
[2020-04-14 06:25] VITALS: BP 127/77
[2020-04-14] MEDS: NICOTINE 21MG/24HR 1 EA TRANSDERMAL TD SCH (08:09)
[2020-04-14] MEDS: OLANZapine ORAL DISINTEGRATING TAB 5MG PO SCH ×2 (08:09→20:45)
[2020-04-14] MEDS: BENZTROPINE 0.5 MG TAB PO SCH ×2 (08:09→20:45)
--- NOTE | 2020-04-14 13:11 | MHIPNPDOC ---
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 He states he came to the emergency room because he wanted to be reevaluated "for the drugs you have me on, because he thought it made him feel worse." He states that since discharge he has been walking slowly, has been restless and nervous, with poor sleep (about 3-4 hours per night), and "zoning out." He reports, "'when I was on the outside taking haldol, it was different that when I was taking it here. I was good here when I was taking it." He states that he took haldol the night before he came to the emergency room and that since discharge on 04/01/20, he reports he smoked marijuana daily but has not used any other substances. Today, he denies ah/vh, does have jain delusions, states he feels closer to God, "in a good way, the holy spirit is in me. I had a spiritual awakening, its not from the shrooms like you guys think though. God just gave me so much information at once." He denies any suicidal thoughts, reports the last time he was having suicidal thoughts was two nights ago, relates this to a side effect of the haldol, denied any plan or intent. VITAL SIGNS: See below. CURRENT MEDICATIONS: See below. MENTAL STATUS EXAMINATION: General Appearance: disheveled, hospital scrubs/clothing Build: average Demeanor: average,cooperative Eye Contact: good eye contact Activity: calm, cooperative Behavior: cooperative Speech: clear, spontaneous, normal volume, reg/rate,rhythm,volume Mood: euthymic Affect: congruent with mood, full, reactive Thought Process: linear an coherent Thought Content (Delusions): denies paranoid delusions, denies bizarre delusions, denies grandiose delusions, religiously preoccupied Thought Content (Other): none reported Thought Content (Aggressive): none reported Perception (Hallucinations): none reported Perception (Other): none reported Cognition (Impairment of): none reported Cognition(Intelligence Est.): average Oriented: Awake, Alert, Oriented times three Insight: poor Judgment: poor Psychosis: Denies ah/vh Diagnoses unspecified psychotic disorder Rule out substance induced psychotic disorder hallucinogen use disorder marijuana use disorder ASSESSMENT: Shahzad states, "I feel 110% better than when I first walked in, I am looking forward to a discharge this week if I could please." He states that he feels better because he stopped the haldol and started the zyprexa. He reports that yesterday, he had "a little episode because my brain wasn't in the right place but I feel it is today" and that he knows he shouldn't have acted out and understands why he received emergency IM medications. He reports sleep and appetite are adequate and that since the incident yesterday, he has not had anymore "spiritual awakenings like Idid when I was first admitted" and is "calming down from that angle." He does maintain that he feels close to God and that he magana always been a jain person. At this time, he reports he has spoken to multiple family members, who are supportive and feel "like I'm doing the right thing, they want me to get help, which is why I'm here." He denies using any substances before admission other than daily marijuana use. he denies any racing thoughts, paranoia, ah/vh at this time. MANAGEMENT PLAN: Continue all medications TIME SPENT: 25 minutes. Vital Signs Vital Signs Date Time Temp Pulse Resp B/P (MAP) Pulse Ox O2 Delivery O2 Flow Rate FiO2 04/14/20 06:25 97.8 80 15 127/77 (94) 98 Room Air Current Medications Current Medications Medications (Trade) Dose Ordered Sig/Jennifer Route PRN Reason Start Time Stop Time Status Last Admin Dose Admin Al Hydrox/Mg Hydrox/Simethicone (Mylanta) 30 ml Q4HP PRN PO HEARTBURN/INDIGESTION 04/09/20 16:00 Benztropine Mesylate (Cogentin) 0.5 mg BID PO 04/09/20 21:00 04/14/20 08:09 Diphenhydramine HCl (Benadryl) 50 mg STAT STAT IM 04/13/20 09:21 04/13/20 09:23 DC 04/13/20 09:30 Docusate Sodium (Colace) 100 mg DAILYPRN PRN PO constipation 04/09/20 16:00 Haloperidol (Haldol) 5 mg BID PO 04/10/20 21:00 04/11/20 14:33 DC 04/10/20 19:43 Haloperidol (Haldol) 5 mg DAILY PO 04/10/20 09:00 04/10/20 12:13 DC Haloperidol (Haldol) 10 mg QHS PO 04/09/20 21:00 Cancel Haloperidol (Haldol) 10 mg STAT STAT IM 04/13/20 09:21 04/13/20 09:23 DC 04/13/20 09:29 Home Med (Med Rec Complete!) ASDIRECTED XX 04/09/20 14:15 04/09/20 14:14 DC Hydroxyzine HCl (Atarax) 50 mg Q4HP PRN PO ANXIETY 04/09/20 21:45 04/10/20 18:20 DC 04/09/20 21:38 Hydroxyzine HCl (Atarax) 50 mg Q4HP PRN PO ANXIETY 04/10/20 18:20 04/12/20 19:33 Ibuprofen (Advil) 400 mg Q6HP PRN PO PAIN 04/09/20 16:00 04/14/20 02:19 Lorazepam (Ativan) 1 mg Q4HP PRN PO Anxiety/ catatonia 04/09/20 18:00 04/12/20 09:40 Lorazepam (Ativan) 2 mg STAT STAT IM 04/13/20 09:21 04/13/20 09:23 DC 04/13/20 09:29 Magnesium Hydroxide (Milk Of Magnesia) 30 ml DAILYPRN PRN PO CONSTIPATION 04/09/20 16:00 Nicotine (Nicoderm Cq 21mg) 1 patch DAILY TD 04/10/20 09:00 04/14/20 08:09 Olanzapine (ZyPREXA ZYDIS) 5 mg BID PO 04/11/20 21:00 04/14/20 08:09 Allergies Coded Allergies: NUTS (Verified Allergy, Unknown, 03/14/20) MELA CARDONA NP Apr 14, 2020 12:55
[2020-04-14] MEDS: LORazepam 1 MG TAB PO PRN (14:01)
[2020-04-14 16:16] VITALS: BP 128/72
[2020-04-14] MEDS ORDERED: traZODone 50 MG TAB PO PRN (20:45)
[2020-04-15 06:41] VITALS: BP 127/75
[2020-04-15] MEDS: OLANZapine ORAL DISINTEGRATING TAB 5MG PO SCH ×2 (07:52→20:02)
[2020-04-15] MEDS: NICOTINE 21MG/24HR 1 EA TRANSDERMAL TD SCH (07:52)
[2020-04-15] MEDS: BENZTROPINE 0.5 MG TAB PO SCH ×2 (07:52→20:02)
--- NOTE | 2020-04-15 09:50 | MHIPNPDOC ---
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 He states he came to the emergency room because he wanted to be reevaluated "for the drugs you have me on, because he thought it made him feel worse." He states that since discharge he has been walking slowly, has been restless and nervous, with poor sleep (about 3-4 hours per night), and "zoning out." He reports, "'when I was on the outside taking haldol, it was different that when I was taking it here. I was good here when I was taking it." He states that he took haldol the night before he came to the emergency room and that since discharge on 04/01/20, he reports he smoked marijuana daily but has not used any other substances. Today, he denies ah/vh, does have alevism delusions, states he feels closer to God, "in a good way, the holy spirit is in me. I had a spiritual awakening, its not from the shrooms like you guys think though. God just gave me so much information at once." He denies any suicidal thoughts, reports the last time he was having suicidal thoughts was two nights ago, relates this to a side effect of the haldol, denied any plan or intent. VITAL SIGNS: See below. CURRENT MEDICATIONS: See below. MENTAL STATUS EXAMINATION: Shahzad is a 25 year old male who is agreeable to meet for the interview. He is pleasant, cooperative, easy to engage interview. His hygiene and grooming are good. General Appearance: neat, clean hospital scrubs/clothing, Build: average Demeanor: average,cooperative Eye Contact: good eye contact Activity: calm, cooperative Behavior: cooperative Speech: clear, spontaneous, normal volume, reg/rate,rhythm,volume Mood: euthymic Affect: congruent with mood, full, reactive Thought Process: linear an coherent Thought Content (Delusions): denies paranoid delusions, denies bizarre delusions, denies grandiose delusions, less religiously preoccupied Thought Content (Other): none reported Thought Content (Aggressive): none reported Perception (Hallucinations): none reported Perception (Other): none reported Cognition (Impairment of): none reported Cognition(Intelligence Est.): average Oriented: Awake, Alert, Oriented times three Insight: fair Judgment: fair Psychosis: Denies ah/vh Diagnoses Unspecified Psychotic disorder Rule out substance induced psychotic disorder Hallucinogen Use disorder Marijuana use disorder ASSESSMENT: patient states, "I feel solace to be here, I'm just waiting until they tell me I can go." Shahzad reports he was singing this morning but denies that it was loud or that he was agitated. He states, "I was singing to myself like I was told to do, like you told me to do." He has been compliant with medications. He reports he has slept well and is eating adequately. He denies ah/vh/si/hi/paranoid. He reports "I feel confined, that's about it." He states that after discharge, he plans on going back to work and "getting my life straightened out" and states he has a good support system. He states he is attending groups with participation. He states, "Zyprexa is better than Haldol" as he reports having EPS from the Haldol. Shahzad states he couldn't sleep because he was restless when he took the haldol and that he doesn't want to take that medication again. He states "now that I am on the Zyprexa I can sleep- now I just have to wait to get out." MANAGEMENT PLAN: Continue all medications. TIME SPENT: 25 minutes. Vital Signs Vital Signs Date Time Temp Pulse Resp B/P (MAP) Pulse Ox O2 Delivery O2 Flow Rate FiO2 04/15/20 06:41 97.3 77 14 127/75 (92) 96 Room Air Current Medications Current Medications Medications (Trade) Dose Ordered Sig/Jennifer Route PRN Reason Start Time Stop Time Status Last Admin Dose Admin Al Hydrox/Mg Hydrox/Simethicone (Mylanta) 30 ml Q4HP PRN PO HEARTBURN/INDIGESTION 04/09/20 16:00 Benztropine Mesylate (Cogentin) 0.5 mg BID PO 04/09/20 21:00 04/15/20 07:52 Diphenhydramine HCl (Benadryl) 50 mg STAT STAT IM 04/13/20 09:21 04/13/20 09:23 DC 04/13/20 09:30 Docusate Sodium (Colace) 100 mg DAILYPRN PRN PO constipation 04/09/20 16:00 Haloperidol (Haldol) 5 mg BID PO 04/10/20 21:00 04/11/20 14:33 DC 04/10/20 19:43 Haloperidol (Haldol) 5 mg DAILY PO 04/10/20 09:00 04/10/20 12:13 DC Haloperidol (Haldol) 10 mg QHS PO 04/09/20 21:00 Cancel Haloperidol (Haldol) 10 mg STAT STAT IM 04/13/20 09:21 04/13/20 09:23 DC 04/13/20 09:29 Home Med (Med Rec Complete!) ASDIRECTED XX 04/09/20 14:15 04/09/20 14:14 DC Hydroxyzine HCl (Atarax) 50 mg Q4HP PRN PO ANXIETY 04/09/20 21:45 04/10/20 18:20 DC 04/09/20 21:38 Hydroxyzine HCl (Atarax) 50 mg Q4HP PRN PO ANXIETY 04/10/20 18:20 04/12/20 19:33 Ibuprofen (Advil) 400 mg Q6HP PRN PO PAIN 04/09/20 16:00 04/14/20 02:19 Lorazepam (Ativan) 1 mg Q4HP PRN PO Anxiety/ catatonia 04/09/20 18:00 04/14/20 14:01 Lorazepam (Ativan) 2 mg STAT STAT IM 04/13/20 09:21 04/13/20 09:23 DC 04/13/20 09:29 Magnesium Hydroxide (Milk Of Magnesia) 30 ml DAILYPRN PRN PO CONSTIPATION 04/09/20 16:00 Nicotine (Nicoderm Cq 21mg) 1 patch DAILY TD 04/10/20 09:00 04/15/20 07:52 Olanzapine (ZyPREXA ZYDIS) 5 mg BID PO 04/11/20 21:00 04/15/20 07:52 Trazodone HCl (Desyrel) 50 mg QHSP PRN PO INSOMNIA 04/14/20 20:45 Allergies Coded Allergies: NUTS (Verified Allergy, Unknown, 03/14/20) MELA CARDONA NP Apr 15, 2020 09:48
[2020-04-15] MEDS ORDERED: OLAN5ZYD PO (13:55)
[2020-04-15 16:32] VITALS: BP 135/83
[2020-04-15] MEDS: hydrOXYzine 50 MG TAB PO PRN (17:42)
[2020-04-15] MEDS: IBUPROFEN 400 MG TAB PO PRN (22:01)
[2020-04-16 06:15] VITALS: BP 122/71
[2020-04-16] MEDS: BENZTROPINE 0.5 MG TAB PO SCH (08:29)
[2020-04-16] MEDS: OLANZapine ORAL DISINTEGRATING TAB 5MG PO SCH (08:29)
[2020-04-16] MEDS: NICOTINE 21MG/24HR 1 EA TRANSDERMAL TD SCH (08:30)
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
== END 2020-04-16 12:10 | disposition home or self-care (01) | DRG 751 ==
LOC: M ED 09:59 → M ED INP 15:52 → M PSY 17:22
PROVIDERS: ADMIT Psychiatry & Neurology Psychiatry; ATTEND Psychiatry & Neurology Psychiatry
DX: F29 Unspecified psychosis not due to a substance or known physiological condition (principal); F19.94 Other psychoactive substance use, unspecified with psychoactive substance-induced mood disorder; F12.90 Cannabis use, unspecified, uncomplicated; F16.90 Hallucinogen use, unspecified, uncomplicated; Z91.010 Allergy to peanuts

== ENCOUNTER 2023-08-17 15:27 | Emergency (ER) | payer OTHER, SELFPAY ==
[~2023-08-17] VITALS: Ht 177.8 cm; Wt 83.9 kg
[~2023-08-17 15:27] MED LIST changes: +BENZ0.5T2 PO; -BENZ0.5T23 PO; +COLA100C5 PO; +DOK1CAP4 PO; -DOK1CAP7 PO; -HALO5TA PO; +HALO5TAB33 PO; +OLAN5ZYD PO; +ZYPR5TAB2 PO
[2023-08-17 15:29] VITALS: BP 152/98; TEMP 98.1; O2SAT 98
== END 2023-08-17 15:58 | disposition left against medical advice (07) ==
LOC: M ED 15:27
DX: F32.A Depression, unspecified (principal); F17.200 Nicotine dependence, unspecified, uncomplicated; F12.10 Cannabis abuse, uncomplicated; Z91.010 Allergy to peanuts; Z79.899 Other long term (current) drug therapy; Z53.9 Procedure and treatment not carried out, unspecified reason

== ENCOUNTER 2023-08-19 01:42 | Inpatient (IN) | payer OTHER ==
[~2023-08-19] VITALS: Ht 177.8 cm; Wt 87.8 kg
[2023-08-19] MEDS ORDERED: diphenhydrAMINE 50MG/ML VIAL As Ordered ONE (01:46)
[2023-08-19] MEDS ORDERED: HALOPERIDOL LACTATE 5MG/ML VIAL As Ordered ONE (01:46)
[2023-08-19] MEDS ORDERED: LORazepam 2 MG/ML 1ML VIAL As Ordered ONE (01:47)
[2023-08-19] MEDS: diphenhydrAMINE 50MG/ML VIAL IM ONE (01:56)
[2023-08-19] MEDS: HALOPERIDOL LACTATE 5MG/ML VIAL IM ONE (01:57)
[2023-08-19] MEDS: LORazepam 2 MG/ML 1ML VIAL IM ONE (01:57)
[2023-08-19 02:28] LABS: HEMATOCRIT 37.4 % (42.0-52.0); MEAN CORPUSCULAR HEMOGLOBIN 29.7 pg (27.0-33.0); MEAN CORPUSCULAR HGB CONC 34.8 g/dl (32.0-36.5); MEAN CORPUSCULAR VOLUME 85.4 fl (80.0-96.0); PLATELET COUNT, AUTOMATED 237 10^3/uL (150-450); RED BLOOD COUNT 4.38 10^6/uL (4.30-6.10); WHITE BLOOD COUNT 7.5 10^3/uL (4.0-10.0)
[2023-08-19 03:04] LABS: ETHYL ALCOHOL (ETHANOL) 0.005 % (0.000-0.010)
[2023-08-19 03:06] LABS: ALBUMIN 3.9 G/DL (3.2-5.2); ALKALINE PHOSPHATASE 40 U/L (46-116); ALT/SGPT 30 U/L (7.0-40); AST/SGOT 27 U/L (<34); BILIRUBIN,DIRECT 0.4 MG/DL (<0.4); BILIRUBIN,TOTAL 0.9 MG/DL (0.3-1.2); BLOOD UREA NITROGEN 17 MG/DL (9-23); CARBON DIOXIDE LEVEL 25 MMOL/L (20-31); CHLORIDE LEVEL 105 MMOL/L (98-107); CREATININE FOR GFR 0.98 MG/DL (0.70-1.30); GLOMERULAR FILTRATION RATE > 60.0 (>60); GLUCOSE, FASTING 93 MG/DL (60-100); POTASSIUM SERUM 3.3 MMOL/L (3.5-5.1); SALICYLATE LEVEL < 3.0 MG/DL (<30); SODIUM LEVEL 140 MMOL/L (136-145); TOTAL PROTEIN 6.6 G/DL (5.7-8.2)
[2023-08-19 03:08] LABS: THYROID STIMULATING HORMONE 0.672 uIU/ML (0.55-4.78)
[2023-08-19 03:18] LABS: AMPHETAMINES LEVEL URINE NEGATIVE (NEGATIVE); BARBITURATES URINE NEGATIVE (NEGATIVE); BENZODIAZEPINES URINE NEGATIVE (NEGATIVE); COCAINE METABOLITE URINE NEGATIVE (NEGATIVE); METHADONE URINE NEGATIVE (NEGATIVE); OPIATES URINE NEGATIVE (NEGATIVE); PHENCYCLIDINE URINE NEGATIVE (NEGATIVE)
[2023-08-19 03:21] LABS: CANNABINOIDS URINE POSITIVE (NEGATIVE)
[2023-08-19] MEDS ORDERED: OLAN1TAB16 PO (04:39)
[2023-08-19] MEDS ORDERED: MED REC CURRENTLY UNOBTAINABLE XX SCH (04:45)
[2023-08-19] MEDS: LORazepam 1 MG TAB PO ONE (14:30)
[2023-08-19] MEDS: MOM 30ML SUSPENSION UDC PO PRN (15:43)
[2023-08-19] MEDS ORDERED: CETI-24 PO (18:49)
[2023-08-19] MEDS ORDERED: HOME MED LIST COMPLETE! XX SCH (18:55)
[2023-08-19] MEDS: NICOTINE 21MG/24HR 1 EA TRANSDERMAL TD PRN (20:08)
[2023-08-20] MEDS: diphenhydrAMINE 25MG CAP PO PRN (00:58)
[2023-08-20] MEDS: traZODone 50 MG TAB PO PRN (00:58)
[2023-08-20] MEDS: ACETAMINOPHEN TAB 650MG DOSE (2X325MG) PO PRN (03:03)
[2023-08-20] MEDS: IBUPROFEN 400MG TAB PO PRN (03:03)
[2023-08-20 06:25] VITALS: BP 139/84; TEMP 98.4; O2SAT 98
[2023-08-20] MEDS: CALCIUM CARBONATE 500 MG CHEW U/D PO PRN (08:58)
[2023-08-20] MEDS: OLANZapine ORAL DISINTEGRATING TAB 5MG PO PRN (13:35)
[2023-08-21] MEDS: QUEtiapine FUMARATE 50MG TAB PO ONE (00:29)
[2023-08-21 06:01] VITALS: BP 138/85; TEMP 97.7; O2SAT 97
[2023-08-21] MEDS ORDERED: DIVALPROEX 250MG *ER* TAB PO SCH (09:00)
[2023-08-21] MEDS ORDERED: DIVALPROEX 250MG TAB PO SCH (09:00)
[2023-08-21] MEDS: QUEtiapine FUMARATE 200 MG TAB PO SCH (10:05)
[2023-08-21] MEDS: RISPERIDONE 1 MG TAB PO SCH (14:28)
[2023-08-21] MEDS: diphenhydrAMINE 50MG CAP PO PRN (16:14)
[2023-08-21] MEDS: LORazepam 2 MG TAB PO PRN (17:31)
[2023-08-21 18:49] VITALS: BP 129/79; TEMP 97.4
[2023-08-21] MEDS: DIVALPROEX 500 MG TAB PO SCH (21:00)
[2023-08-22 06:06] VITALS: BP 177/108; TEMP 97.5; O2SAT 100
[2023-08-22] MEDS: DIVALPROEX 250MG TAB PO SCH (08:37)
[2023-08-22] MEDS: DIVALPROEX 500MG *ER* TAB PO ONE (09:34)
[2023-08-22 16:49] VITALS: BP 137/89; TEMP 97.8
[2023-08-23 06:25] VITALS: BP 126/75; TEMP 97.4; O2SAT 97
[2023-08-23] MEDS: DIVALPROEX 250MG *ER* TAB PO SCH (08:41)
[2023-08-23 18:20] VITALS: BP 125/69; TEMP 97.1
[2023-08-24 06:00] VITALS: BP 125/86; TEMP 97; O2SAT 100
[2023-08-24 17:15] VITALS: BP 125/70; TEMP 97.9; O2SAT 99
[2023-08-25 06:59] VITALS: BP 123/80; TEMP 96.1; O2SAT 100
[2023-08-25] MEDS: risperiDONE 3 MG TAB PO SCH ×2 (08:44→20:37)
[2023-08-25 15:38] VITALS: BP 117/61; TEMP 97.5; O2SAT 100
[2023-08-26 06:36] VITALS: BP 136/63; TEMP 97.6; O2SAT 100
[2023-08-26 16:27] VITALS: BP 124/58; TEMP 97.4; O2SAT 100
[2023-08-27 06:23] VITALS: BP 130/74; TEMP 97.4; O2SAT 100
[2023-08-27 16:31] VITALS: BP 109/67; TEMP 97.8; O2SAT 100
[2023-08-28 06:49] VITALS: BP 114/69; TEMP 96.9; O2SAT 100
[2023-08-28] MEDS: HALOPERIDOL LACTATE 5MG/ML VIAL IM STA (07:06)
[2023-08-28] MEDS: LORazepam 2 MG/ML 1ML VIAL IM STA (07:06)
[2023-08-28] MEDS: MAALOX 30 ML SUSP *UDC PO PRN (15:28)
[2023-08-28 18:07] VITALS: BP 117/57; TEMP 97.8
[2023-08-29 06:20] VITALS: BP 124/70; TEMP 97.2; O2SAT 97
[2023-08-29 18:08] VITALS: BP 117/61; TEMP 98.9
[2023-08-30 05:57] VITALS: BP 136/68; TEMP 97.5; O2SAT 99
[2023-08-30] MEDS: DIVALPROEX 500MG *ER* TAB PO SCH (08:11)
[2023-08-30] MEDS: PALIPERIDONE PAL 234MG/1.5ML INJ (INVEGA)(FREE PSY INPT ONLY) IM ONE (11:51)
[2023-08-30 17:48] VITALS: BP 122/76; TEMP 97.1
[2023-08-31 06:21] VITALS: BP 143/73; TEMP 97.6; O2SAT 98
[2023-08-31] MEDS ORDERED: CALC200T15 PO (08:27)
[2023-08-31] MEDS ORDERED: TRAZ-257 PO (08:27)
[2023-08-31] MEDS ORDERED: NICO21PAT TD (08:27)
[2023-08-31] MEDS ORDERED: QUET200T2 PO (08:27)
[2023-08-31] MEDS ORDERED: DEPA500T2 PO (08:27)
[2023-08-31] MEDS ORDERED: INVE234I IM (08:27)
== END 2023-08-31 14:04 | disposition home or self-care (01) | DRG 753 ==
LOC: M ED 01:42 → M ED INP 13:20 → M PSY 14:18
PROVIDERS: ADMIT Student in an Organized Health Care Education/Training Program; ATTEND Student in an Organized Health Care Education/Training Program
DX: F31.2 Bipolar disorder, current episode manic severe with psychotic features (principal); Z78.1 Physical restraint status; Z91.119 Patient's noncompliance with dietary regimen due to unspecified reason; Z91.148 Patient's other noncompliance with medication regimen for other reason; F12.90 Cannabis use, unspecified, uncomplicated; Z91.010 Allergy to peanuts; Z79.899 Other long term (current) drug therapy; F17.200 Nicotine dependence, unspecified, uncomplicated; F14.90 Cocaine use, unspecified, uncomplicated

== ENCOUNTER 2023-09-02 02:32 | Emergency (ER) | payer OTHER ==
[~2023-09-02] VITALS: Ht 180.3 cm; Wt 88.1 kg
[~2023-09-02 02:32] MED LIST changes: +CALC200T15 PO; +CETI-24 PO; +DEPA500T2 PO; +INVE234I IM; +NICO21PAT TD; +OLAN1TAB16 PO; +QUET200T2 PO; +TRAZ-257 PO
[2023-09-02 02:34] VITALS: BP 123/67; TEMP 99.1; O2SAT 98
[2023-09-02] MEDS ORDERED: DIVA500T9 PO (19:59)
== END 2023-09-02 05:17 | disposition left against medical advice (07) ==
LOC: M ED 02:32
DX: Z53.21 Procedure and treatment not carried out due to patient leaving prior to being seen by health care provider (principal)

== ENCOUNTER 2023-09-02 12:17 | Inpatient (IN) | payer OTHER ==
[2023-09-02] MEDS: LORazepam 2 MG TAB PO STA ×2 (12:52→23:57)
[2023-09-02 14:04] LABS: HEMATOCRIT 37.7 % (42.0-52.0); HEMOGLOBIN 12.8 g/dl (13.5-17.5); MEAN CORPUSCULAR VOLUME 88.3 fl (80.0-96.0); PLATELET COUNT, AUTOMATED 253 10^3/uL (150-450); RED BLOOD COUNT 4.27 10^6/uL (4.30-6.10); WHITE BLOOD COUNT 8.3 10^3/uL (4.0-10.0)
[2023-09-02 14:25] LABS: AMPHETAMINES LEVEL URINE NEGATIVE (NEGATIVE); BARBITURATES URINE NEGATIVE (NEGATIVE); BENZODIAZEPINES URINE NEGATIVE (NEGATIVE); COCAINE METABOLITE URINE NEGATIVE (NEGATIVE); METHADONE URINE NEGATIVE (NEGATIVE); OPIATES URINE NEGATIVE (NEGATIVE); PHENCYCLIDINE URINE NEGATIVE (NEGATIVE)
[2023-09-02 14:26] LABS: CANNABINOIDS URINE POSITIVE (NEGATIVE); ETHYL ALCOHOL (ETHANOL) 0.004 % (0.000-0.010)
[2023-09-02 14:28] LABS: ALBUMIN 4.1 G/DL (3.2-5.2); ALKALINE PHOSPHATASE 46 U/L (46-116); ALT/SGPT 42 U/L (7.0-40); AST/SGOT 27 U/L (<34); BILIRUBIN,DIRECT 0.1 MG/DL (<0.4); BILIRUBIN,TOTAL 0.5 MG/DL (0.3-1.2); BLOOD UREA NITROGEN 17 MG/DL (9-23); CALCIUM LEVEL 9.7 MG/DL (8.5-10.1); CARBON DIOXIDE LEVEL 30 MMOL/L (20-31); CHLORIDE LEVEL 104 MMOL/L (98-107); CREATININE FOR GFR 0.93 MG/DL (0.70-1.30); GLOMERULAR FILTRATION RATE > 60.0 (>60); GLUCOSE, FASTING 93 MG/DL (60-100); POTASSIUM SERUM 3.8 MMOL/L (3.5-5.1); SALICYLATE LEVEL < 3.0 MG/DL (<30); SODIUM LEVEL 140 MMOL/L (136-145); TOTAL PROTEIN 7.2 G/DL (5.7-8.2)
[2023-09-02 14:31] LABS: THYROID STIMULATING HORMONE 1.194 uIU/ML (0.55-4.78)
[2023-09-02] MEDS: ACETAMINOPHEN 325 MG TAB PO ONE (18:19)
[2023-09-02] MEDS ORDERED: DIVA500T9 PO (19:59)
[2023-09-02 20:13] LABS: VALPROIC ACID (DEPAKOTE) 83.9 UG/ML (50.0-100.0)
[2023-09-02] MEDS ORDERED: HOME MED LIST COMPLETE! XX SCH (20:15)
[2023-09-02] MEDS: NICOTINE 21MG/24HR 1 EA TRANSDERMAL TD ONE (22:51)
[2023-09-02] MEDS: traZODone 100 MG TAB PO ONE (23:57)
[2023-09-03] MEDS: ACETAMINOPHEN TAB 650MG DOSE (2X325MG) PO ONE ×2 (01:59→10:58)
[2023-09-03] MEDS ORDERED: traZODone 100 MG TAB PO PRN (07:20)
[2023-09-03] MEDS: QUEtiapine FUMARATE 200 MG TAB PO SCH (08:09)
[2023-09-03] MEDS: CETIRIZINE (ZyrTEC) 10 MG TAB PO SCH (08:09)
[2023-09-03] MEDS: DIVALPROEX 500MG *ER* TAB PO SCH (08:09)
[2023-09-03] MEDS: LORazepam 1 MG TAB PO ONE (10:58)
[2023-09-03] MEDS: OLANZapine ORAL DISINTEGRATING TAB 5MG PO ONE (16:10)
[2023-09-03] MEDS: LORazepam 2 MG/ML 1ML VIAL IM ONE (16:46)
[2023-09-03] MEDS: OLANZapine INTRAMUSCULAR 10MG VIAL IM ONE (16:46)
[2023-09-04] MEDS: OLANZapine ORAL DISINTEGRATING TAB 5MG PO ONE (02:46)
[2023-09-04] MEDS: LORazepam 2 MG/ML 1ML VIAL IM ONE (03:09)
[2023-09-04] MEDS: diphenhydrAMINE 50MG/ML VIAL IM ONE (03:09)
[2023-09-04] MEDS: NICOTINE 21MG/24HR 1 EA TRANSDERMAL TD SCH (08:01)
[2023-09-04] MEDS: CALCIUM CARBONATE 500 MG CHEW U/D PO PRN (11:51)
[2023-09-04] MEDS ORDERED: ACETAMINOPHEN TAB 650MG DOSE (2X325MG) PO PRN (12:35)
[2023-09-04] MEDS: LORazepam 1 MG TAB PO PRN (15:10)
[2023-09-04 18:09] VITALS: BP 132/82; TEMP 98.4
[2023-09-04] MEDS: traZODone 50 MG TAB PO PRN (21:25)
[2023-09-05] MEDS: diphenhydrAMINE 25MG CAP PO PRN (00:10)
[2023-09-05] MEDS: MOM 30ML SUSPENSION UDC PO PRN (00:22)
[2023-09-05 06:21] VITALS: BP 137/95; TEMP 97.7; O2SAT 96
[2023-09-05] MEDS: NICOTINE 14 MG/24 HR TRANSDERMAL TD SCH (08:08)
[2023-09-05] MEDS: DIVALPROEX 250MG *ER* TAB PO SCH (08:08)
[2023-09-05] MEDS: PALIPERIDONE PAL 156MG/1ML INJ(INVEGA)(FREE PSY INPT ONLY) IM ONE (11:17)
[2023-09-05 18:34] VITALS: BP 130/78; TEMP 98.1
[2023-09-05] MEDS: QUEtiapine FUMARATE 200 MG TAB PO SCH (20:11)
[2023-09-05] MEDS: PALIPERIDONE 3MG ER TAB (INVEGA) PO SCH (20:11)
[2023-09-06] MEDS: MAALOX 30 ML SUSP *UDC PO PRN (04:40)
[2023-09-06 06:44] VITALS: BP 121/68; TEMP 97.3; O2SAT 97
[2023-09-06 17:46] VITALS: BP 138/71; TEMP 98
[2023-09-07 06:31] VITALS: BP 125/62; TEMP 97.5; O2SAT 97
[2023-09-07 18:00] VITALS: BP 121/62; TEMP 98.2; O2SAT 98
[2023-09-08 06:11] VITALS: BP 143/69; TEMP 96.7
[2023-09-08] MEDS: DIVALPROEX 250MG *ER* TAB PO SCH (08:06)
[2023-09-08] MEDS ORDERED: DIVALPROEX 250MG *ER* TAB PO SCH (09:00)
[2023-09-08 16:15] VITALS: BP 119/66; TEMP 98.1; O2SAT 98
[2023-09-09 06:04] VITALS: BP 111/65; TEMP 97.1
[2023-09-09 15:44] VITALS: BP 113/63; TEMP 98; O2SAT 98
[2023-09-10 06:05] VITALS: BP 127/71; TEMP 97.2; O2SAT 96
[2023-09-10 16:20] VITALS: BP 120/59; TEMP 97.9; O2SAT 98
[2023-09-10] MEDS: IBUPROFEN 400MG TAB PO PRN (17:00)
[2023-09-11 05:50] VITALS: BP 117/65; TEMP 97.6; O2SAT 99
[2023-09-11 18:43] VITALS: BP 146/76; TEMP 98.2
[2023-09-12] MEDS ORDERED: PALI1TAB2 PO (08:09)
[2023-09-12] MEDS ORDERED: QUET200T2 PO (08:09)
[2023-09-12] MEDS ORDERED: DIVA500T9 PO (08:09)
== END 2023-09-12 12:00 | disposition home or self-care (01) | DRG 753 ==
LOC: M ED 12:17 → M ED INP 09-04 12:31 → M PSY 09-04 15:17
PROVIDERS: ADMIT Student in an Organized Health Care Education/Training Program; ATTEND Student in an Organized Health Care Education/Training Program
DX: F31.2 Bipolar disorder, current episode manic severe with psychotic features (principal); F90.9 Attention-deficit hyperactivity disorder, unspecified type; J45.909 Unspecified asthma, uncomplicated; F17.200 Nicotine dependence, unspecified, uncomplicated; Z83.3 Family history of diabetes mellitus; Z81.8 Family history of other mental and behavioral disorders; Z81.3 Family history of other psychoactive substance abuse and dependence; Z62.810 Personal history of physical and sexual abuse in childhood; Z62.811 Personal history of psychological abuse in childhood; Z79.899 Other long term (current) drug therapy; Z91.018 Allergy to other foods